=== PATIENT | male | born 1940 | race Caucasian/White ===

== ENCOUNTER 2017-02-14 16:26 | Inpatient (IN) ==
[2017-02-14] MEDS ORDERED: VANCOMYCIN IV PER PHARMACY MISC SCH (19:00)
--- NOTE | 2017-02-14 19:46 | Diag Imaging Result Doc PS360 ---
EXAM: FOOT COMPLETE RIGHT INDICATION: right foot pain, extremity gangrene TECHNIQUE: 3 views COMPARISON: None. FINDINGS: There is diffuse soft tissue edema surrounding the foot and ankle. There appears to be a soft tissue defect at the tip of the second toe. No significant soft tissue can be identified overlying the tip of the distal phalanx of the second toe, and there may be exposed bone. However, no discrete bony erosion is identified at this time. There are small calcaneal bone spurs. There is no discrete fracture or dislocation. Visualized joint spaces are essentially unremarkable except for minimal degenerative changes at the anterior aspect of the distal tibia there is extensive atherosclerotic calcification involving the foot and ankle. IMPRESSION: Diffuse soft tissue edema and a prominent soft tissue defect at the tip of the second toe as described. However, no definite underlying bony erosion is appreciated. Electronically signed by Darrion Durán 02/14/2017 7:44 PM
--- NOTE | 2017-02-14 19:49 | Diag Imaging Result Doc PS360 ---
EXAM: CHEST-PORTABLE INDICATION: preop TECHNIQUE: One view COMPARISON: 09/29/2016 FINDINGS: Inspiration is suboptimal. The lungs are grossly clear. There is no discrete pleural fluid collection or pneumothorax. Cardiac silhouette is borderline prominent, probably due to magnification from AP technique. There has been interval placement of an implantable heart rhythm monitor. Central vasculature is unremarkable. IMPRESSION: Borderline prominent heart, possibly due to magnification from AP technique. No definite acute pathology, otherwise. Electronically signed by Darrion Durán 02/14/2017 7:47 PM
[2017-02-14 20:04] LABS: MANUAL DIFF NEEDED? NO
[2017-02-14 20:13] LABS: INR 1.04; PROTIME 10.9 Seconds (9.2-11.7)
[2017-02-14 20:26] LABS: ALBUMIN 3.8 g/dL (3.5-5.0); BASO% 0.3 % (0.0-0.8); CALCIUM 9.6 mg/dL (8.8-10.2); EOS% 2.2 % (0.0-10.0); HEMATOCRIT 27.2 % (42.0-52.0); HEMOGLOBIN 8.8 g/dL (14.0-18.0); IMM GRAN# 0.09 X1000 (0.0-0.04); LYMPH# 1.34 X1000 (1.2-3.4); LYMPH% 14.9 % (20.5-51.1); MCH 29.8 PG (27-31); MCHC 32.4 g/dL (33-37); MCV 92.2 FL (81-99); MONO# 0.66 X1000 (0.11-0.59); MONO% 7.3 % (1.7-9.3); MPV 9.6 FL (7.4-10.4); NEUT% 74.3 % (42.2-75.2); PLT 306 X1000 (130-400); POTASSIUM 4.7 mmol/L (3.5-5.1); RBC 2.95 XMIL (4.7-6.1); TOTAL BILIRUBIN 0.17 mg/dL (0.20-1.00); TOTAL PROTEIN 7.4 g/dL (6.3-8.3)
[2017-02-14 21:13] LABS: SED RATE 110 mm/hr (0-15)
[2017-02-14] MEDS ORDERED: VANCOMYCIN 2,000 MG in NS 500 ML IV ONE (22:00)
[2017-02-14] MEDS: ZOSYN 2.25 GM/NS 2.25 GM/50 ML IVPB IV SCH (22:17)
[2017-02-14] MEDS: HUMALOG SUBQ SCH (22:20)
--- NOTE | 2017-02-14 22:28 | HISTORY AND PHYSICAL ---
CHIEF COMPLAINT: Mr. Dubon is admitted because of right foot ischemia with active infection. Suspect deep tissue infection with osteomyelitis suspected as well. Dr. Hay is planning on doing debridement and possible amputation tomorrow. HISTORY OF PRESENT ILLNESS: This is a 76-year-old with history of prostate and colon cancer, hypertension, diabetes mellitus type 2, acute onset of dysphagia and headaches which was his last admission with headache and dysphagia. This time came in from Dr. Hay's office with ischemia in his foot. He is followed by Dr. Сергей Wilson. PAST SURGICAL HISTORY: Partial colectomy, cholecystectomy, prostatectomy. SOCIAL HISTORY: Remote history of nicotine dependence. Does not smoke or drink. No illicit drugs. FAMILY HISTORY: Mother from breast cancer. Father from prostate cancer. REVIEW OF SYSTEMS: No weight gain or loss. No fever or chills. Just been feeling pretty bad in this strong smell from the right foot. More swelling. He has chronic lymphedema in that right leg. PHYSICAL EXAMINATION: VITAL SIGNS: Temperature 98.2 degrees, pulse 86, respirations 18, blood pressure 140/90. CVP less than 6 cm. LUNGS: Clear in all lung casiano. CARDIOVASCULAR: Regular rhythm and rate without murmur or S3. ABDOMEN: Soft. No hepatojugular reflux. No hepatosplenomegaly. EXTREMITIES: Right leg with 3+ pitting edema from really the foot all the way up to his knee. He has almost all of his toes with ulcerative lesions. He has a strong anaerobic smell with drainage from that distal foot. ASSESSMENT AND PLAN: 1. Foot ulcer right side. Suspect peripheral vascular disease, but he also has renal insufficiency. We will put him on empiric antibiotics. He is supposed to get debridement tomorrow. I suspect he has osteomyelitis and will need 6 weeks of antibiotic coverage. He probably will need a PICC line. For tonight we will load him with vancomycin and with and Zosyn to cover for gram negative, gram positive and anaerobes. 2. Chronic lymphedema in that right leg. I am not sure if we have done arterial studies on that right leg. I assume we have, but may need to order those. 3. Diabetes mellitus, type 2. Follow up sugars, put him on sliding scale. 4. History of prostate cancer status post prostatectomy, which is apparently metastatic. He is being treated by Dr. Reddy. 5. Colon cancer status post partial resection. 6. Hypertension. Follow blood pressure. CURRENT MEDICATIONS: Aspirin 81 mg a day. Casodex 50 mg a day. Catapres 0.1 mg t.i.d. p.r.n. Prinivil 10 mg a day. Lisinopril 40 mg a day. Metformin 500 mg b.i.d. Prilosec 1 capsule daily. cc: Jean Quick MD
[2017-02-15] MEDS: ZOSYN 2.25 GM/NS 2.25 GM/50 ML IVPB IV SCH ×2 (03:33→10:14)
[2017-02-15 03:37] LABS: URINE CULTURE NEEDED? NO; URINE MICRO REVIEW NEEDED? NO; URINE SOURCE CLEAN CATCH
[2017-02-15 06:08] LABS: BILIRUBIN URINE NEGATIVE (NEGATIVE); BLOOD URINE NEGATIVE (NEGATIVE); COLOR STRAW; GLUCOSE URINE NEGATIVE (NEGATIVE); LEUKOCYTES URINE NEGATIVE (NEGATIVE); NITRITE URINE NEGATIVE (NEGATIVE); PROTEIN URINE TRACE mg/dL (NEGATIVE); SP GRAVITY URINE 1.012; TURBIDITY URINE CLEAR (CLEAR); UR EPITHELIAL CELLS <10 /HPF (<10); URINE BACTERIA NEGATIVE /HPF; URINE RBC <10 /HPF (<10); URINE WBC <10 /HPF (<10); UROBILINOGEN URINE NORMAL (NORMAL)
[2017-02-15] MEDS: HUMALOG SUBQ SCH ×4 (06:10→20:32)
[2017-02-15 06:40] LABS: HEMATOCRIT 26.6 % (42.0-52.0); HEMOGLOBIN 8.5 g/dL (14.0-18.0); MCH 29.7 PG (27-31); MPV 9.8 FL (7.4-10.4); RBC 2.86 XMIL (4.7-6.1)
[2017-02-15 06:54] LABS: HEMOGLOBIN A1C 6.7 % (4.8-6.0)
[2017-02-15 07:07] LABS: POTASSIUM 4.4 mmol/L (3.5-5.1)
--- NOTE | 2017-02-15 07:51 | PROGRESS NOTE ---
DATE: 02/15/2017 CONCLUSION: Patient is admitted to the hospital with infection involving his right foot. Thus far, on plain x-ray, there is no evidence of osteomyelitis. RECOMMENDATIONS: I agree with treating the patient with vancomycin and Zosyn pending culture results. I am going to repeat the patient's creatinine tomorrow and if it rises above what it is today, then I will stop vancomycin and put the patient on daptomycin. I have ordered a bone scan of the right foot. DISCUSSION: The patient tells me that for the past two and half weeks, he has developed an infection on the toes of his right foot. The toes are swelling. They are erythematous and painful. LABORATORY STUDIES: The patient's x-ray of the right foot shows no osteomyelitis. A culture taken from the right foot on Gram stain shows gram positive cocci, gram negative rods, and gram negative cocci. Culture is pending. Also, the patient has had blood cultures drawn and their results are pending also. The patient's chest x-ray shows no acute disease. The patient's CBC shows a white count of 7660, hemoglobin 8.5, and platelet count 304,000. Creatinine is 1.3. The GFR is 54. Liver function studies are normal. Urinalysis shows no white cells or bacteria. PAST MEDICAL HISTORY/REVIEW OF SYSTEMS: Eyes and Ears: He denies difficulty hearing or seeing. Neck: No stiffness. Respiratory: No cough or shortness of breath. Cardiac: No chest pain or palpitations. GI: No nausea, vomiting, or diarrhea. Genitourinary: No dysuria or flank pain. Neurologic: No seizures. No motor or sensory loss. No seizures. Endocrine: Patient has diabetes but not thyroid disease. Hematologic: Patient is anemic but he does not have a bleeding tendency. The remainder of the patient's review of systems was completed and was negative. PREVIOUS HOSPITALIZATIONS AND OPERATIONS: He has had a partial removal of his colon for colon cancer. He has also had, at the same time, a cholecystectomy performed. He has an implanted service tech that is in his chest. He has had a colonoscopy. He has had surgery for removal of prostate cancer. MEDICAL DISEASES: Positive for colon and prostate cancer, diabetes mellitus, and hypertension. INFECTIOUS DISEASE HISTORY: Negative for pneumonia and UTI. FAMILY HISTORY: Positive for diabetes mellitus and cancer. SOCIAL HISTORY: The patient lives in [place]. He is . He has a dog as a pet. He does not smoke cigarettes, drink alcoholic beverages, or abuse drugs. ALLERGIES: He is allergic to sulfa. HOME MEDICATIONS: Include the following: Metformin, naproxen, glucosamine, amlodipine, and aspirin. PHYSICAL EXAMINATION: Vital Signs: Temperature is 98.1 degrees, pulse 74, respirations 14, blood pressure 161/72. Patient weighs 226 pounds. General: This is an obese, elderly male who is in no acute distress. Head, Eyes, Ears, Nose, and Throat: Patient has dentures both for the upper and lower part of the mouth. He can hear my spoken words. He can see near objects. Neck: No meningismus. Thorax: The patient has an implanted device on the left side of the chest. The site is not erythematous or swollen. Lungs: Clear to auscultation. Cardiovascular: Regular heart rate. Abdomen: Soft and nontender. Extremities: The patient's right foot is somewhat swollen. The toes are swollen and have some eschar on them as well as some black tissue. There was no odor to the foot and no drainage coming from the foot. COMORBIDITIES: Include he is elderly and he also is a diabetic. ASSESSMENT AND PLAN: Patient appears to have an infection in his feet. My plan would be to continue with vancomycin and Zosyn but if the creatinine should rise, then I will discontinue Zosyn and start the patient on daptomycin along with Zosyn. Thank you for the consult. cc: MD RAYMON Crane
--- NOTE | 2017-02-15 14:16 | Diag Imaging Result Doc PS360 ---
EXAM: 3 PHASE BONE SCAN INDICATION: R foot osteomyelitis TECHNIQUE: 29.9 mCi of technetium 99 MDP was administered intravenously and three phase images of the feet were obtained in the usual fashion post administration. COMPARISON: No prior nuclear medicine bone scan is available for comparison. FINDINGS: There is increased uptake associated with the right forefoot on blood flow and blood pool images indicating hyperemia, probably due to cellulitis. On delayed images, there is increased focal uptake associated with the tip of the right great toe. There is milder uptake associated with what is probably the second and third order third and fourth toes on the right. Osteomyelitis cannot be excluded. There is no abnormal uptake associated with the left foot. IMPRESSION: 1.Increased uptake associated with the right forefoot on blood flow and blood pool images indicating nonspecific hyperemia, probably due to cellulitis. 2.Focal increased delayed uptake at the tip of the great toe and also associated with a couple other toes on the right. Osteomyelitis cannot be excluded. Electronically signed by Darrion Durán 02/15/2017 2:13 PM
--- NOTE | 2017-02-15 14:28 | PROGRESS NOTE ---
DATE: 02/15/2017 SUBJECTIVE: The patient got back from the bone scan and is asking for food. No fever. No chills. No nausea, vomiting, or diarrhea. The patient has a problem with his toes for some time. OBJECTIVE: His blood pressure 165/67, pulse of 79. respirations 20, temperature 98.1 degrees sat of 98% room air.General Appearance: Well-developed, well-nourished white male, in no acute distress. HEENT: Anicteric. Clear conjunctivae. Neck: Supple. No JVD. No bruit. Cardiovascular: S1, S2. Normal rate and rhythm. No murmur, rubs, or gallops. Pulmonary: Clear to auscultation bilaterally. GI: Soft, nontender, nondistended. Normoactive bowel sounds. Musculoskeletal: He has his 1st, 2nd and 3rd toes on the left foot are necrotic and has a foul smell odor. No significant cellulitis around it. LABORATORY: White count 7.66, hemoglobin 8.5, hematocrit of 26.6, platelets of 304,000. Sodium 141, potassium 4.4, chloride 104, bicarb 25, BUN 29,. Creatinine 1.4, glucose of 103. ASSESSMENT AND PLAN: This is a 76-year-old white male, admitted to the hospital for gangrene and necrotic toes on the left. 1. Necrotic toes concerning for osteo. The patient on broad-spectrum antibiotics. General Surgery was consulted. Dr. Hay was following. We will keep the patient on broad-spectrum antibiotics for now. We will follow up culture. ID is also following. 2. Diabetes type 2. We will hold his metformin and we will continue Humalog. 3. Hypertension. We will resume his home Norvasc. 4. Deep vein thrombosis prophylaxis. Will put the patient on Lovenox. CODE STATUS: The patient is a full code.
[2017-02-15] MEDS ORDERED: DIPRIVAN 1% ONE (15:18)
[2017-02-15] MEDS ORDERED: XYLOCAINE-MPF 2% ONE (15:56)
[2017-02-15] MEDS ORDERED: LR 1,000 ML ONE (15:56)
[2017-02-15] MEDS: ZOSYN 3.375 GM/NS 3.375 GM/50 ML IVPB IV SCH ×3 (16:17→22:55)
--- NOTE | 2017-02-15 19:57 | OPERATIVE NOTE ---
PROCEDURE DATE: 02/15/2017 PREOPERATIVE DIAGNOSES: 1. Diabetic toe infection of the 2nd, 3rd toe with exposed bone of the right foot. 2. Diabetic toe ulcer of the 1st toe on the right foot. POSTOPERATIVE DIAGNOSES: 1. Diabetic toe infection of the 2nd, 3rd toe with exposed bone of the right foot. 2. Diabetic toe ulcer of the 1st toe on the right foot. PROCEDURE PERFORMED: 1. Amputation of the right #2 and #3 toes. 2. Excisional debridement of the skin and subcutaneous tissue of a 2 x 1 cm ulcer of the right 1st toe. ESTIMATED BLOOD LOSS: 10 mL. SPECIMENS: 1. Right 2nd and 3rd toes. 2. Distal metatarsal for bone culture. ANESTHESIA: General. INDICATION: This is a 76-year-old male with history of lymphedema and diabetes marginally controlled who presents with longstanding toe wounds to the right second and third toes, now with exposed bone of the 2nd digit. He also has an ulcer on his medial aspect of his right 1st toe. Amputation to facilitate wound healing and control of a source of infection is indicated. OPERATIVE FINDINGS: There is some purulence of the toes themselves, but the distal metatarsal appeared to be healthy with good bleeding tissue noted. The ulcers on the left 1st toe were very superficial and were quickly debrided back at a very shallow level to healthy bleeding tissue. OPERATIVE NOTE: Risks, benefits, alternatives discussed with the patient and family and he consented to procedure. He was seen preoperatively and surgery to be performed was confirmed. Surgical site was marked. He has taken to the operating room, placed in supine position. General anesthesia was induced. The foot was prepped with Betadine solution and draped in usual fashion. After time-out was performed, we confirmed the surgical site. We planned elliptical incision around the 2nd and 3rd toes and carried this down to the level of the distal metatarsal joint. We amputated toes in their entirety through the joint space. We then using rongeur forceps debrided back the second and third metatarsal head and sent these bones for culture. There was some purulence noted in the toes, but the proximal tissues had no pus and were bleeding well consistent with adequate perfusion. We then turned our attention to the medial aspect of the 1st toe. There were some superficial ulcers here. Using scissors and forceps, we excised this back. This was to the subcutaneous tissue level only. Obtained hemostasis in both wounds and irrigated them and packed the wound with Vashe, Kerlix and loose Kerlix and Jose Luis wrap. Tolerated procedure well. There was no identified complication. Counts correct x2. I spoke with the family. He was transferred back to his room. cc: Abelino Hay MD
[2017-02-15] MEDS: PERIDEX MT SCH (20:32)
[2017-02-15] MEDS: VANCOMYCIN 1,500 MG in NS 250 ML IV SCH (22:27)
[2017-02-16] MEDS: ZOSYN 3.375 GM/NS 3.375 GM/50 ML IVPB IV SCH ×4 (03:09→21:01)
[2017-02-16 06:00] LABS: HEMATOCRIT 26.7 % (42.0-52.0); HEMOGLOBIN 8.6 g/dL (14.0-18.0); MCH 30.4 PG (27-31); MCHC 32.2 g/dL (33-37); MCV 94.3 FL (81-99); MPV 9.6 FL (7.4-10.4); RBC 2.83 XMIL (4.7-6.1)
[2017-02-16 06:12] LABS: CALCIUM 8.9 mg/dL (8.8-10.2); POTASSIUM 4.3 mmol/L (3.5-5.1)
[2017-02-16] MEDS: HUMALOG SUBQ SCH ×4 (06:21→21:53)
--- NOTE | 2017-02-16 08:41 | PROGRESS NOTE ---
DATE: 02/16/2017 PRESENT ILLNESS: The patient is status post debridement of the great toe and amputation of toes 2 and 3. The bone scan showed the presence of osteomyelitis in toes 2 and 3 and also in the great toe. It showed also cellulitis of the right forefoot. MEDICATIONS: The patient is receiving a combination of vancomycin and Zosyn. PHYSICAL EXAMINATION: Vital Signs: Temperature is 98.4 degrees, pulse 78, respirations 20, blood pressure 128/98. General: This is a healthy-appearing elderly male. He is in no acute distress. Lungs: Clear to auscultation. Cardiovascular: Regular heart rate. Abdomen: Soft and nontender. Extremities: The right foot has a large dressing around it. The dressing is intact. LABORATORY AND X-RAY: Bone scan shows possible osteomyelitis in the great toe and toes 2 and 3. It also showed cellulitis in the right forefoot. The patient's CBC shows a white count of 7920, hemoglobin 8.6, and platelet count 279,000. Creatinine is 1.2. GFR is 59. Blood cultures thus far are sterile. The right foot cultures from 02/14/2017 are negative, and the ones from 02/15/2017 are pending. ASSESSMENT AND PLAN: The patient is status post surgery with amputation of toes 2 and 3 and debridement of the great toe. I read Dr. Hay's operative note, and I want to talk to him about does he think that there still could be some focus of osteomyelitis remaining, which in that situation I would treat the patient with IV antibiotics for 6 weeks versus a much shorter period of treatment if the bone has all been removed and there is only a soft tissue infection. COMORBIDITIES: Include diabetes mellitus and the patient is elderly. It should be noted too that the patient has had both colon and prostate cancer. cc: Sahil Sawant MD
--- NOTE | 2017-02-16 08:53 | CONSULTATION ---
DATE OF CONSULTATION: 02/15/2017 CHIEF COMPLAINT: Metastatic prostate cancer. HISTORY OF PRESENT ILLNESS: Mr. Coco Dubon is a 76-year-old male well known to Dr. Reddy with a history of metastatic prostate cancer with bone involvement. He is currently being treated with Eligard and Casodex, as well as Zometa. His last Eligard was on 02/07/2017. Additionally, he has a history of colon cancer status post resection. The patient is admitted with right foot ulcer and ischemia. The patient also has an active infection at this time. Osteomyelitis is being ruled out as well. The patient is being followed by Dr. Sawant and is currently on vancomycin and Zosyn. Additionally, Dr. Hay is following the patient for debridement with possible amputation. The patient does have a history of chronic right leg lymphedema and was wearing CHERI hose daily. He reports that he believes he was wearing hose that were too tight and "cut off the circulation". The patient is sitting up in bed currently awake and alert in no apparent distress. PAST MEDICAL HISTORY: 1. Metastatic prostate cancer with bone involvement. 2. History of colon cancer. 3. Hypertension. 4. Diabetes mellitus type 2. 5. Anemia of chronic disease. 6. Chronic kidney disease. 7. Thrombocytopenia. PAST SURGICAL HISTORY: 1. Partial colectomy. 2. Cholecystectomy. 3. Prostatectomy. SOCIAL HISTORY: The patient does have a history of smoking. He currently does not use tobacco, alcohol or illicit drugs. FAMILY HISTORY: Significant for breast cancer in the patient's mother and prostate cancer in the patient's father. MEDICATIONS ON ADMISSION: 1. Metformin. 2. Aspirin 81 mg. 3. Amlodipine. 4. Eligard. 5. Casodex. 6. Zometa. ALLERGIES: Sulfa. REVIEW OF SYSTEMS: A 14-point review of systems was obtained and is negative, except for as mentioned in HPI. PHYSICAL EXAMINATION: General: Mr. Dubon is a very pleasant, 76-year-old male sitting up in bed in no immediate distress. HEENT: Normocephalic, atraumatic. Mucous membranes are pink and moist. Sclerae is anicteric. Extraocular movements intact. Neck: Supple. Lungs: Clear to auscultation bilaterally. Chest expansion is equal bilaterally. CV: S1, S2 is heard without murmur, rub or gallop. Abdomen: Soft, nondistended, nontender. Bowel sounds positive in all quadrants. No rebound or guarding noted. Extremities: Without clubbing. The patient does have right lower extremity 3+ pitting edema to the knee. Additionally, he has ulcerative lesions on his toes with foul smelling drainage. ASSESSMENT AND PLAN: 1. Metastatic prostate cancer with bone involvement, currently being treated with Eligard, Casodex and Zometa. His last Eligard was on 02/07/2017. Additionally, he has a history of colon cancer and is status post resection. 2. Right foot ulcer questionably related to peripheral vascular disease. Dr. Sawant is currently following and has placed the patient on vancomycin and Zosyn. Dr. Hay is following as well for potential debridement and possible amputation. 3. Chronic right leg lymphedema. The patient will possibly be scheduled for arterial studies. 4. Diabetes mellitus type 2. Currently on sliding scale insulin. Would monitor glucose daily. 5. Hypertension. Would monitor blood pressure and continue antihypertensives as ordered. We will follow along with you and make further recommendations pending outcomes. The above reflects the history, exam, assessment and plan of Dr. Reddy. Dictated by MOI Doll for Dhaval Reddy MD cc: MOI Doll MD
[2017-02-16] MEDS ORDERED: NORVASC PO SCH (09:00)
[2017-02-16] MEDS: PERIDEX MT SCH ×2 (09:38→21:01)
--- NOTE | 2017-02-16 13:11 | PROGRESS NOTE ---
DATE: 02/16/2017 SUBJECTIVE: He feels well. No events. Dressing was changed overnight after it was soiled after spilling his urinal, but no other events. OBJECTIVE: Vital Signs: Temperature is 98.1 degrees, pulse 80, blood pressure 120/55. General: He is alert, in no acute distress. Cardiovascular: Normal rate, regular rhythm. Extremities: His right foot dressing is clean, dry and intact. LABS: I reviewed his labs. White count 7, hematocrit 26, glucose 195. ASSESSMENT/PLAN: A 76-year-old male with diabetic toe infection of the second and third toe. Bone scan shows some changes concerning for possible osteo, although clinically at the time of surgery this seemed to not be the case. His wound had been adequately debrided. He is on antibiotics. I think Dr. Sawant plans to treat him preemptively for osteomyelitis and I agree with this in this chronically-ill gentleman with quite severe wound of his foot. We will continue following. His MARY's show adequate perfusion to the level of the foot bilaterally, and this was confirmed at time of surgery and need for revascularization. Based off this, we will continue to monitor his wound. I will take his dressing down tomorrow, and I will make definitive plans for changes going forward, but he can follow me in the next 1 or 2 weeks at [facility] pending on what we find tomorrow. I appreciate Dr. Sawant and the hospitalist's help with this patient. cc: Abelino Hay MD
--- NOTE | 2017-02-16 16:10 | PROGRESS NOTE ---
DATE: 02/16/2017 SUBJECTIVE: The patient is feeling better today. He denies having any fever or chills. Denies having any nausea, vomiting, or diarrhea. OBJECTIVE: Vital signs: Blood pressure 126/57, pulse of 77, respirations 16, temperature 97.6 degrees, sat of 97% room air. General appearance: Well-developed, well-nourished white male, in no acute distress. HEENT: Anicteric. Clear conjunctivae. Neck: Supple. No JVD. No bruit. Cardiovascular: S1, S2 normal. Normal rate and rhythm. No murmur, rubs, or gallops. Pulmonary: Clear to auscultation bilaterally. GI: Soft, nontender, nondistended. Normoactive bowel sounds. Musculoskeletal: No clubbing, cyanosis. Has right foot with dressing in place around the toe. LABORATORY: White count 7.92, hemoglobin 8.6, hematocrit of 26.7, platelets of 279,000. Chemistry: Sodium 140, potassium 4.3, chloride 104, bicarb 25 BUN 20, creatinine 1.2, glucose of 92. ASSESSMENT AND PLAN: This is a 76-year-old white male admitted for diabetic foot ulcer. 1. Diabetic foot ulcer. Status post 2nd and 3rd left toe amputations plus debridement of the great toes on the same foot. We will continue IV antibiotics. Cultures still pending. ID is following. General Surgery is following. 2. Diabetes. We will continue sliding scale insulin for now. 3. Hypertension. We will continue Norvasc. 4. Code status. The patient is a full code. His is his surrogate decision maker. 5. Deep vein thrombosis prophylaxis. Put the patient on Lovenox.
[2017-02-16] MEDS: VANCOMYCIN 1,500 MG in NS 250 ML IV SCH (22:14)
[2017-02-17] MEDS: ZOSYN 3.375 GM/NS 3.375 GM/50 ML IVPB IV SCH (04:12)
[2017-02-17 05:55] LABS: HEMATOCRIT 26.6 % (42.0-52.0); HEMOGLOBIN 8.6 g/dL (14.0-18.0); MCH 30.3 PG (27-31); MCHC 32.3 g/dL (33-37); MCV 93.7 FL (81-99); MPV 9.6 FL (7.4-10.4); RBC 2.84 XMIL (4.7-6.1)
[2017-02-17] MEDS: HUMALOG SUBQ SCH ×4 (06:22→22:37)
[2017-02-17 06:49] LABS: CALCIUM 8.9 mg/dL (8.8-10.2); MAGNESIUM 2.1 mg/dL (1.5-2.7); POTASSIUM 4.4 mmol/L (3.5-5.1)
--- NOTE | 2017-02-17 07:13 | VASCULAR LAB ---
PROCEDURE NAME: Arterial Bilateral Legs - 02/16/2017 REQUESTING PHYSICIAN: Dr. Johnny Hay. SCALLOP DREDGER: Mark. INDICATIONS: Amputation of right 2nd and 3rd toes with right great toe ulcer. FINDINGS: Segmental pressures are as follows: Right brachial 144, left 155. Right proximal thigh 199, left 250. Right distal thigh 250, left 250. Right popliteal 187, left 211. Right dorsalis pedis 107, left 212. Right posterior tibial 155, left 192. Right toe: Unable to put blood pressure cuff on, left 101, right MARY 1.00, left 1.37. WAVEFORM ANALYSIS: Waveforms appear to be intact to the level of the toe bilaterally. The MARY on this person is elevated which may represent calcific plaques but, on this study, there appears to be perfusion to the level of the toes bilaterally. INTERPRETATION: There appears to be perfusion to the level of the toes bilaterally suggesting potential for healing. The patient's ABIs are likely falsely elevated secondary to calcification. cc: MD Abelino Lugo MD
--- NOTE | 2017-02-17 07:55 | PROGRESS NOTE ---
DATE: 02/17/2017 PRESENT ILLNESS: The patient is status post debridement of the great toe and amputation of toes 2 and 3 on the right foot. The bone scan showed the possibility of osteomyelitis in the toes and, also, it showed cellulitis in the right forefoot. MEDICATIONS: Patient is receiving vancomycin and Zosyn. PHYSICAL EXAMINATION: Vital Signs: Temperature is 98.1 degrees, pulse 79, respirations 18, blood pressure 176/71. Generally, this is a fairly healthy-appearing, elderly male. He is in no acute distress. Lungs clear to auscultation. Cardiovascular: Heart rate is regular. Abdomen is soft and nontender. Extremities: The right foot has a large dressing around it. The dressing is intact. LABORATORY DATA AND X-RAY: The culture from the foot grew diphtheroids. This represents, I think, a skin contaminant and does not need to be covered with antibiotics. CBC shows a white count of 6980, hemoglobin 8.6, and platelet count 278,000. Creatinine is 1.3. GFR is 54. ASSESSMENT AND PLAN: The patient is status post surgery on his feet including amputation of toes 2 and 3 and debridement of the great toe on the right side. As mentioned above, the culture grew from the foot grew diphtheroids. I consider this a skin contaminant and not causing the patient's infection and, therefore, it does not need to be treated with antibiotic therapy. I have ordered to have a PICC placed in the patient and then I put a consult in for [facility] to supply the patient's home antibiotic. He is on vancomycin. I have substituted cefepime for Zosyn. I plan to treat the patient for a total of 6 weeks with both antibiotics. I will see the patient in my office at 3 weeks and then again at 6 weeks and, if everything looks so good at the 6-week visit, we will stop his antibiotics and remove his PICC. The patient's comorbidities include diabetes and the fact that the patient is elderly. cc: Sahil Sawant MD
[2017-02-17 08:13] LABS: INR 1.05; PROTIME 11.1 Seconds (9.2-11.7)
[2017-02-17] MEDS ORDERED: NS 250 ML ONE (08:36)
[2017-02-17] MEDS ORDERED: MAXIPIME 2 GM/NS 2 GM/100 ML IVPB IV SCH (09:00)
[2017-02-17] MEDS: NORVASC PO SCH (09:19)
[2017-02-17] MEDS: PERIDEX MT SCH ×2 (09:19→22:38)
[2017-02-17] MEDS: LOVENOX SUBQ SCH (09:19)
[2017-02-17] MEDS: PRINIVIL PO SCH (09:19)
--- NOTE | 2017-02-17 13:12 | PROGRESS NOTE ---
DATE: 02/17/2017 SUBJECTIVE: Feels well. No pain. PICC line got placed this morning. No fevers. No tachycardia. Blood pressure has been okay at 164/70. OBJECTIVE: General: He is alert and in no acute distress. Extremities: Lower extremities are well perfused. Chronic edema of the right lower extremity. His amputation site is granulating well, with healthy, beefy tissue in the bed. No purulence and no necrosis. The ulcer on the medial aspect of his 1st toe is clean, as well. Laboratory: Laboratories reviewed. White count 6. Creatinine stable at 1.3. Glucose 177. ASSESSMENT AND PLAN: A 76-year-old male with a diabetic toe wound, status post amputation of the 2nd and 3rd toes. Wounds look well. PICC line is in place for home antibiotics. Home health is being arranged. From a wound care standpoint, he will need twice-daily wet-to-dry dressings with either saline or Vashe, as available, and I can see him in 2 weeks at the [facility]. I have given the patient these instructions and discussed this with his nurse. It would be fine for him to go home from a surgical standpoint if all of his other needs are arranged. cc: Abelino Hay MD
--- NOTE | 2017-02-17 13:49 | PROGRESS NOTE ---
DATE: 02/17/2017 SUBJECTIVE: The patient is feeling well. He denies having any pain. The patient stated he has very minimal feeling on his lower extremities therefore pain was not an issue for him down there. No fever, no chills overnight. The patient was seen and examined. EXAM: Vital Signs: Blood pressure 164/70, pulse of 73, respiration 18, temperature 97.6 degrees, sat of 97% on room air. General Appearance: Elderly white male, pleasant in no acute distress. HEENT: Anicteric. Clear conjunctivae. Neck: Supple. No JVD. No bruits. Cardiovascular: S1, S2. Normal rate and rhythm. No murmur, rubs, or gallops. Pulmonary: Clear to auscultation bilaterally. GI: Soft, nontender, nondistended. Normoactive bowel sounds. Musculoskeletal: No clubbing, cyanosis, or edema. LABORATORY: Sodium 143, potassium 4.4, chloride 104, bicarb 25, BUN 26, creatinine 1.7, glucose 151. White count 6.98, hemoglobin 8.6, hematocrit of 26.6, platelets 278,000. Microbiology: The wound grew out gram positive cocci. I and S are still pending. ASSESSMENT AND PLAN: This is a 76-year-old white male with uncontrolled diabetes presented with left first, 2nd and 3rd toe diabetic ulcer status post amputation of his 2nd and 3rd and debride of first toe. 1. Toe amputation and osteomyelitis of the left 1st great toes. Culture grew out gram positive cocci. The patient on vancomycin. He seemed to be tolerating the medication well. ID is following. PICC line is in place. When we know what the gram positive cocci is we can tailor the medications so that he can go home with appropriate antibiotics. 2. Diabetes type 2. We will continue sliding scale insulin. 3. Hypertension. Continue Norvasc and lisinopril. CODE STATUS: The patient is a full code.
[2017-02-17] MEDS: VANCOMYCIN 1,500 MG in NS 250 ML IV SCH (22:37)
[2017-02-18] MEDS: HUMALOG SUBQ SCH ×2 (06:28→12:42)
[2017-02-18] MEDS: LOVENOX SUBQ SCH (08:34)
[2017-02-18] MEDS: PRINIVIL PO SCH (08:34)
[2017-02-18] MEDS: PERIDEX MT SCH (08:34)
[2017-02-18] MEDS: NORVASC PO SCH (08:34)
--- NOTE | 2017-02-18 09:58 | DISCHARGE SUMMARY ---
ADMISSION DATE: 02/14/2017 DISCHARGE DATE: 02/18/2017 CONSULTATIONS: 1. Dhaval Reddy MD, Hematology Oncology. 2. Johnny Hay MD with General Surgery. 3. Sahil Sawant MD with Infectious Disease. PERTINENT PROCEDURES: 1. Foot x-ray showed diffuse soft tissue edema prominent soft tissue defect at the tip of the 2nd toe as described; however, no definite underlying bony erosion was appreciated. 2. Nuclear bone scan showed increased uptake associated with right forefoot on blood flow and blood pool images indicating nonspecific. Hyperemia probably due to cellulitis. Focal increased delayed uptake at the tip of the great toe and also associated with a couple of other toes on the right. Osteomyelitis could not be excluded. 3. Amputation of the right 2nd and 3rd toes. Excisional debridement of the skin and subcutaneous tissues of a 2.1 cm ulcer of the right 1st toe performed by Dr. Johnny Hay. 4. Arterial Dopplers on the bilateral lower extremities. There appears to be profusion to the level of the toes bilaterally suggesting potential for healing. The patient' s ABIs are likely falsely elevated secondary to calcification. DISCHARGE DIAGNOSES: 1. Right diabetic toe wound status post amputation of the 2nd and 3rd toes with debridement performed by Dr. Johnny Hay. The wound looks appropriate. The patient had a peripherally inserted central catheter line placed for IV antibiotics with cefepime and Zosyn. This has been arranged with Dr. Sawant with [facility]. The patient will receive these antibiotics for 6 weeks and follow up with Dr. Sawant in 3 weeks and then again in 6 weeks to see if they can stop the antibiotics. From a wound care standpoint, he will need twice daily wet-to-dry dressing changes with either saline or Vashe and Dr. Hay will see him in 2 weeks at [facility]. The patient has been given education as well as instructions. 2. Diabetes mellitus type 2. Continue with home medications. 3. Hypertension. Continue with Norvasc and lisinopril. 4. Metastatic prostate cancer with bone involvement currently being treated with Eligard, Casodex and Zometa. Followed by Dr. Reddy. 5. History of colon cancer. Status post resection. 6. Chronic right leg lymphedema. The patient underwent bilateral arterial studies that did not show any flow-limiting lesions. HOSPITAL COURSE: Briefly, Mr. Dubon is a 76-year-old male who carries a past medical history of metastatic prostate cancer with bone involvement, recently treated with a Eligard and Casodex, as well as Zometa, as well as a history of colon cancer status post resection. The patient was admitted for a right foot ulcer and ischemia. He underwent 2nd and 3rd toe amputations by Dr. Johnny Hay with debridement on the 1st toe. The patient was also followed by Dr. Sahil Sawant. Currently on antibiotics with vancomycin as well as Zosyn. He will be switched to Zosyn and cefepime at the time of his discharge for [address] Hay has released the patient. He has received his PICC line for home antibiotics. He will be followed by [facility]. From a wound care standpoint, he will need twice daily wet-to-dry dressings with either saline or Vashe. Dr. Hay will see the patient in 2 weeks at the [facility]. The patient has been given education on these instructions, how to care for his wound, as well as family. Again, the patient will be going home with IV antibiotics. He will follow up with Dr. Sawant in 3 weeks and then again in 6 weeks. VITAL SIGNS AT TIME OF DISCHARGE: Temperature is 98.4 degrees, heart rate 86, respirations 16, blood pressure 131/57, O2 is 100% on room air. DISCHARGE DIET: Diabetic. DISCHARGE MEDICATIONS: As per Dr. Ramsey. His IV antibiotics will include cefepime and Zosyn for a total of [address] Sahil Sawant. FOLLOWUP: The patient is being discharged home with home health and IV with [facility]. He will follow up with Dr. Johnny Hay in 2 weeks [address] as Dr. Sahil Sawant in 3 weeks and then again in 6 weeks. He will do wound care b.i.d. He has been educated on this. The patient can return to the ED for any worsening of symptoms. TIME SPENT: Discharge time is 30 minutes. Dictated by MOI Rios for Dheeraj Ramsey MD cc: Caio Kwan MD Addendum: I personally evaluated and examined the patient in conjunction to the CATERING SERVER and agreed with her disposition [facility]
--- NOTE | 2017-02-18 10:32 | PROGRESS NOTE ---
DATE: 02/18/2017 SUBJECTIVE: Feels well. No pain. He has got his PICC line. No issues with his dressing overnight. OBJECTIVE: No fevers. No tachycardia. Blood sugars have been reasonably controlled. His dressing is clean, dry, and intact. He is sitting in the bed. ASSESSMENT AND PLAN: This is a gentleman status post amputation of his right second and third toes for necrotic wounds to his foot. He is doing well. Dr. Sawant has plans for IV antibiotics at home. I can see him back in 2 weeks at [facility]. In the meantime, he will continue wet-to-dry dressings b.i.d. to his foot, and we will make a decision at the time at [place] whether he needs a wound VAC or not. cc: Abelino Hay MD
[2017-02-18 11:27] VITALS: BP 109/56
--- NOTE | 2017-02-18 11:29 | PROGRESS NOTE ---
DATE: 02/18/2017 SUBJECTIVE: The patient is feeling well. He is ready to go home. No fever. No chills. No nausea, vomiting, or diarrhea. OBJECTIVE: Vital Signs: Blood pressure 131/57, pulse of 86, respirations 16, temperature 98.4 degrees, and saturation of 100% on room air. General Appearance: A thin white male in no acute distress. HEENT: Anicteric. Clear conjunctivae. Neck: Supple. No JVD. No bruit. Cardiovascular: S1 and S2. Normal rate and rhythm. No murmur, rubs, or gallops. Pulmonary: Clear to auscultation bilaterally. Gastrointestinal: Soft, nontender, nondistended. Normoactive bowel sounds. Musculoskeletal: No clubbing, cyanosis, or edema. LABORATORY: None was ordered for today. ASSESSMENT AND PLAN: This is a 76-year-old white male, admitted to the hospital for diabetic toe ulcer status post left 2nd and 3rd toe removed and left great toe debridement. Culture grew out Staphylococcus epidermides. Discussed with Dr. Sawant, who still wants the patient to be on vancomycin. I discussed with home health. They can administer his vancomycin at home once a day. We will discharge the patient home today.
== END 2017-02-18 13:08 | disposition home health service (06) ==
LOC: SUATTDRO 16:26 → DIRADM 16:26 → 4N 16:46
PROVIDERS: ATTEND Internal Medicine

== ENCOUNTER 2017-03-29 07:08 | Inpatient (IN) ==
--- NOTE | 2017-03-29 07:19 | PROVIDER DOCUMENTATION ---
HPI-Musculoskeletal Pain/Inj - GENERAL Chief Complaint: Rib Pain Stated Complaint: fall Time Seen by Provider: 03/29/17 07:09 Source: patient - HX OF PRESENT ILLNESS-MUSKULOSKELTAL Nature of Presenting Problem: Pt uses a walker and stubled last night bruising his left lower ribs. he went to bed last night but had too much pain to get out of bed this morning so had to call an ambulance. Only his left ribs hurt - FALL INJURY Location of Pain/Injury: reports: chest Pain Radiation: reports: no radiation Reason for Fall: reports: lost balance Symptoms prior to fall:: reports: none Loss of Consciousness: no loss of consciousness Injury Associated Symptoms: reports: chest pain Review of Systems - Adult - REVIEW OF SYSTEMS - ADULT Constitutional: denies: chills, fever Eyes: denies: discharge, blurred vision Ears, Nose, Mouth & Throat: denies: ear pain, nose pain Cardiovascular: denies: chest pain, irregular heart rate Respiratory: denies: chronic cough, pleurisy Gastrointestinal: denies: constipation, diarrhea, nausea, poor appetite, vomiting Genitourinary: denies: discharge, hematuria Musculoskeletal: reports: bone pain Integumentary: reports: no symptoms reported Neurological: reports: no symptoms reported (always has trouble walking so uses a walker) Psychiatric: reports: no symptoms reported Endocrine: denies: goiter, cold intolerance, heat intolerance Hematologic/Lymphatic: denies: low blood count, lymphedema Allergic/Immunologic: reports: no symptoms reported Past History - Adult - PAST MEDICAL HISTORY-ADULT Review of Records: reports: Nursing Assessment Review, Medications Reviewed Major Childhood Illnesses: reports: denies history Cardiovascular: reports: denies history Respiratory: reports: denies history Gastrointestinal: reports: denies history Obstetrical/Gynecological: reports: denies history Genitourinary: reports: denies history Musculoskeletal: reports: denies history Neurological: reports: denies history Endocrine/Immune: reports: denies history Other Conditions: reports: denies history - IMMUNIZATION STATUS Childhood Immunizations: See Nurse Assessment Flu Vaccine: See Nurse Assessment - FAMILY HISTORY Family History: reviewed, not pertinent Physical Exam-Injury Related - Physical Exam-Injury Related General Appearance: appears well, alert Eyes: PERRL/EOMI, pink conjunctivae Head, Ears, Nose, Mouth & Throat: normocephalic/atraumatic, moist mucous membranes, normal ENT inspection Neck: non-tender, full range of motion, supple, normal inspection, pain with axial compression Respiratory: chest non-tender, lungs clear, normal breath sounds, no pleuratic chest pain, no respiratory distress Cardiovascular: normal peripheral pulses, regular rate, rhythm, no edema, no gallop, no JVD, no murmur Abdominal Exam: normal bowel sounds, non tender, soft, no organomegaly Back Exam: normal inspection, no CVA tenderness, no vertebral tenderness Extremity: non-tender, normal inspection Integumentary: normal color, warm/dry 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, grossly normal Psych/Mental Status: normal mood/affect, normal thought content, normal thought process, oriented x 3 Progress - PLAN OF CARE/RESULTS Progress/Plan/Lab Results: Vital Signs - 8 hr 03/29/17 07:15 Temperature 98.9 F Pulse Rate 85 Respiratory Rate 14 Blood Pressure 163/96 O2 Sat by Pulse Oximetry 96 Orders Category Date Time Status Admit - [facility] Routine AdmDCTranf 03/29/17 10:46 Ordered Activity - Up with Assistance ORDERED Care 03/29/17 10:46 Active Intake and Output-Strict ORDERED Care 03/29/17 10:46 Active Vital Signs Order Q 8-HR ASSESS Care 03/29/17 10:46 Active Wound Care DIRECTED Care 03/29/17 09:17 Active Z-Document. for Tele Applied ORDERED Care 03/29/17 10:46 Completed Physician/Provider Consults Stat Cons 03/29/17 10:00 Ordered Physician/Provider Consults Stat Cons 03/29/17 10:01 Ordered Social Service Consult Routine Cons 03/29/17 10:46 Active Diabetic Diet Diet 03/29/17 09:42 Active cxr [CHEST-2 VIEWS] [RAD] Stat Exams 03/29/17 07:09 Completed CBC WITH NO DIFF [HEME] Stat Lab 03/29/17 10:20 Completed COMPREHENSIVE METABOLIC PANEL [CHEM] Stat Lab 03/29/17 10:20 Completed MAGNESIUM [CHEM] Stat Lab 03/29/17 10:20 Completed PROTIME WITH INR [COAG] Stat Lab 03/29/17 10:20 Completed Collagenase Clostridium Oint [Santyl Oint] Med 03/29/17 09:58 Discontinued See Dose Instructions TOP NOW ONE Ketorolac [Toradol] Med 03/29/17 08:09 Discontinued 60 mg IM NOW ONE Methocarbamol [Robaxin] Med 03/29/17 08:10 Discontinued 1,500 mg PO NOW ONE Telemetry [OM.EQ] Routine Oth 03/29/17 10:46 Active Transfer/Admit Order [TRANSFER] Routine Transfer 03/29/17 10:03 Completed Result Diagrams: 03/29/17 10:20 03/29/17 10:20 - REASSESSMENT Reassessment #1 Time Reassessed: 11:00 Status: unchanged (long discussion about placement because the family can't handle him at home. Admit observation to go to another hospital and transtion to rehab as cannot go home) Departure - Departure Date of Disposition Decision: 03/29/17 Time of Disposition Decision: 12:00 DIAGNOSIS: Myalgia, traumatic, Cellulitis and abscess of foot excluding toe Disposition: ADMITTED INPATIENT 09 Certified Medical Emergency: Emergent Condition: Stable - Critical Care Note This patient required my direct & personal management of CC.: No
--- NOTE | 2017-03-29 07:46 | Diag Imaging Result Doc PS360 ---
CHEST-2 VIEWS - 03/29/2017 INDICATION: right chest pain/ fall last night TECHNIQUE: COMPARISON: 02/14/2017 FINDINGS: There is a new left PICC line in good position with the tip at the upper SVC. The lungs are clear. Heart size is normal. No pneumothorax or pleural effusion. Stable cardiac device at the left anterior chest wall. IMPRESSION: Negative exam. Electronically signed by Zoran Avalos 03/29/2017 7:44 AM
--- NOTE | 2017-03-29 07:48 | Diag Imaging Result Doc PS360 ---
RIBS ONLY LEFT - 03/29/2017 INDICATION: left lower rib pain after a fall last night TECHNIQUE: Four views COMPARISON: None FINDINGS: There is a left-sided PICC line and left anterior chest wall cardiac monitoring device. The left-sided ribs are intact. Lungs are grossly clear. IMPRESSION: Negative exam. Electronically signed by Zoran Avalos 03/29/2017 7:45 AM
[2017-03-29] MEDS ORDERED: TORADOL IM ONE (08:09)
[2017-03-29] MEDS ORDERED: ROBAXIN PO ONE (08:10)
[2017-03-29] MEDS ORDERED: SANTYL OINT TOP ONE (09:58)
[2017-03-29 10:40] LABS: HEMATOCRIT 26.4 % (42.0-52.0); HEMOGLOBIN 8.6 g/dL (14.0-18.0); MCH 30.1 PG (27-31); MCHC 32.6 g/dL (33-37); MCV 92.3 FL (81-99); MPV 9.9 FL (7.4-10.4); RBC 2.86 XMIL (4.7-6.1)
[2017-03-29 10:41] LABS: INR 1.06; PROTIME 11.2 Seconds (9.2-11.7)
[2017-03-29 10:45] LABS: ALBUMIN 3.4 g/dL (3.5-5.0); CALCIUM 9.2 mg/dL (8.8-10.2); POTASSIUM 3.6 mmol/L (3.5-5.1); TOTAL BILIRUBIN 0.27 mg/dL (0.20-1.00)
[2017-03-29] MEDS: NS 1,000 ML IV SCH (12:10)
[2017-03-29] MEDS ORDERED: VANCOMYCIN IV PER PHARMACY MISC SCH (13:30)
--- NOTE | 2017-03-29 15:16 | HISTORY AND PHYSICAL ---
PRIMARY CARE PHYSICIAN: Dr. Caio Kwan. CHIEF COMPLAINT: Fall with rib pain. HISTORY OF PRESENT ILLNESS: Mr. Dubon is a 76-year-old male, who was discharged from our service about a month and a half ago for diabetic foot ulcer, at which time he had debridement by Dr. Hay. He is on home vancomycin under the care of Dr. Sahil Sawant. Last night, he sustained an accidental fall while trying to maneuver with his walker and sat down on the couch. He hit the chair with the left side of his chest but did not hit his head nor did he lose consciousness. He was on the ground for about 15 minutes until his son was able to come over and help him up and, this morning, he came to the ER because of worsening pain. In the ER, he had rib and chest x-ray which did not show any fractures and chest x-ray did not show anything acute. His laboratory data showed some mild leukocytosis, anemia, hyponatremia and renal insufficiency. He is now going to be admitted for observation status, as he will likely be going to rehab at [facility] within the next 24-48 hours. PAST MEDICAL HISTORY: 1. Recent diabetic foot ulcer, status post debridement. 2. Diabetes mellitus. 3. Hypertension. 4. Metastatic prostate cancer followed by Dr. Reddy. 5. History of colon cancer, status post. 6. Chronic right leg lymphedema. 7. CKD. 8. Anemia of chronic disease. SURGICAL HISTORY: He has had a partial colectomy, cholecystectomy, and prostatectomy, amputation of the right 2nd and 3rd toes with excisional debridement. SOCIAL HISTORY: Patient does not smoke, drink, or use illicit substances. He is and lives with his . His also has chronic medical problems and he has recently been falling quite a bit. FAMILY HISTORY: Noncontributory. REVIEW OF SYSTEMS: A 14-point review of systems obtained and found to be negative with the exception of the HPI. HOME MEDICATIONS: 1. Norvasc 5 mg daily. 2. Aspirin 325 mg daily. 3. Hydrochlorothiazide 12.5 mg daily. 4. Metformin 1000 mg p.o. b.i.d. 5. Naprosyn 500 mg p.o. b.i.d. 6. Vancomycin 1 g q. 24. ALLERGIES: Sulfa and meperidine. PHYSICAL EXAMINATION: VITAL SIGNS: Blood pressure is 141/65, heart rate 77, respiratory rate 18, O2 saturation 97% on room air. Temperature is 98.1 degrees. GENERAL: This is an elderly male, lying in hospital bed in no acute distress. NEUROLOGIC: The patient is awake, alert, and oriented. He follows commands without focal deficits. HEENT: Head is atraumatic and normocephalic. His pupils are equal, round, and reactive to light. Oral mucosa is moist. Trachea is midline. There is no JVD. CHEST: Clear to auscultation bilaterally. CV: Regular rate and rhythm. S1-S2 is noted. No murmurs. GI: Soft, nondistended, and nontender. Bowel sounds positive. EXTREMITIES: Right lower extremity with 2+ pitting edema as well as mild erythema and warmth to touch. Left lower extremity with trace edema and diminished pulses. DIAGNOSTIC DATA: Chest and rib x-ray shows no acute findings. WBC 12.32. Hemoglobin 8.6, hematocrit 26.4, platelets 239. INR 1.06. Sodium 133, potassium 3.6, chloride 98, CO2 of 26, anion gap 9, BUN 31, creatinine 1.3, glucose 151, calcium 9.2, magnesium 2. LFTs within normal limits. Albumin 3.4. ASSESSMENT AND PLAN: 1. Fall with intractable left-sided rib pain. We are going to admit the patient for observation status and consult [facility]. He is likely to go to the facility in the morning. We will continue pain control, incentive spirometry, and consult physical therapy. 2. Diabetic foot ulcer colon. Status post debridement. Dr. Hay and Dr. Sawant have been consulted. We will continue antibiotics renally dosed. 3. Leukocytosis: There does not seem to be any other systemic signs of infection. The patient is not tachycardic or febrile. We will continue antibiotics and monitor closely. 4. Hyponatremia: Likely mildly hypovolemic. We will add some light IV fluids and monitor. We will hold his hydrochlorothiazide as well. 5. Acute kidney injury on chronic kidney disease: The patient is right around his baseline creatinine but we are going to hold his hydrochlorothiazide, metformin, and Naprosyn as they are nephrotoxic. 6. We will have antibiotics renally dosed by the pharmacy and followed by Dr. Sawant. 7. Hypertension: Will increase his Norvasc to 10 mg. 8. Right lower extremity edema: The patient has had an extremity arterial study done in the recent past but I do not see any venous studies. We will go ahead and order a venous study of the right lower extremity to rule out deep venous thrombosis. 9. Anemia: We will check iron studies in the morning as well as thyroid function. 10. Diabetes mellitus: Hemoglobin A1c 6.7%. We will continue pattern blood sugars and sliding scale insulin. 11. Deep vein thrombosis prophylaxis with renally dosed Lovenox. Further recommendations to follow. Dictated by MOI Patiño for Shahid Walker MD cc: MOI Patiño MD I have seen and examined patient and I agree with the above evaluation and plan. moises ENNIS
[2017-03-29] MEDS: VANCOMYCIN 1 GM/NS 1 GM/250 ML IVPB IV SCH (16:19)
[2017-03-29] MEDS: LOVENOX SUBQ SCH ×2 (16:20→21:11)
[2017-03-29] MEDS: HUMALOG SUBQ SCH (16:35)
--- NOTE | 2017-03-29 17:43 | CONSULTATION ---
DATE OF CONSULTATION: 03/29/2017 HISTORY OF PRESENT ILLNESS: This is a 76-year-old male, known to me for toe amputations of his right foot. I have been managing his wound is an outpatient. He had a fall last night and significant left chest and rib pain from the fall, prompting his presentation to the emergency department for pain control. He was admitted. He states wounds overall are doing okay. He has some swelling in his foot intermittently, especially with walking. MEDICAL HISTORY: Diabetes, hypertension, history of prostate cancer, colon cancer, lymphedema of the right leg, chronic kidney disease. PAST SURGICAL HISTORY: He has had a colectomy, cholecystectomy, prostatectomy, amputation right 2nd and 3rd toes. SOCIAL HISTORY: No tobacco, alcohol, or drugs. FAMILY HISTORY: Noncontributory. REVIEW OF SYSTEMS: Ten point negative except for what is mentioned HPI. PHYSICAL EXAMINATION: Vital Signs: Temperature is 98 degrees, pulse 83, blood pressure 151/59, O2 saturation 94% on room air. General: He is alert. He is eating dinner, in no acute distress. Cardiovascular: Normal rate and rhythm. Pulmonary: No increased work of breathing, but he is taking shallow respirations given the pain on his left side, but he is not tachypneic. He is tender over his left posterior chest, but I do not see any bruising or wounds. Peripheral vascular examination: He has stable bilateral lower extremity edema, slightly worse on the right than left. His amputation site is overall clean. There is some chronic-appearing erythema on his foot, but I do not see any acute cellulitis and there is some fibrinous exudate in the bed of his wound, but no necrosis. LABORATORY: White count 12, hematocrit 26, platelets 1.3. Glucose 151. ASSESSMENT/PLAN: This is a 76-year-old male with a history of diabetic-associated right foot wound. He is eating dinner now. I plan on debriding this tomorrow, but this is not urgent. This is just to facilitate his ongoing wound healing. Otherwise, he will continue enzymatic debridement with Santyl and local wound dressing changes. He will need pain management and aggressive pulmonary toileting regarding his left chest injury, but we will continue to follow along. cc: Abelino Hay MD
--- NOTE | 2017-03-29 18:10 | CONSULTATION ---
DATE OF CONSULTATION: 03/29/2017 CONCLUSION: The patient was admitted the hospital after falling on his left side and causing severe pain in his left chest. I have been seeing the patient for treatment of osteomyelitis of the right foot. The patient was on vancomycin and cefepime. He has only 4 doses of antibiotics left to complete a 6-week treatment course. I examined the patient's right foot today and it is erythematous and the wound does not have any granulation tissue that looks healthy forming. Therefore, I think there may be a new infection in the foot. RECOMMENDATIONS: I agree with treating the patient with vancomycin, I substituted cefepime for Zosyn. Also I have obtained a culture from the patient's right foot. I have obtained a culture from the patient's foot and have added cefepime to vancomycin that has already been ordered. DISCUSSION: The patient was being treated with vancomycin and Zosyn for an infection of the right foot which was felt to be osteomyelitis. He was on vancomycin and Zosyn and had only 4 doses left to complete a 6 week treatment course. The patient fell on his left side and injured his ribs on the left side although no fracture was seen on x-ray. He has been admitted to the hospital. LAB: The patient's lab studies thus far show a CBC with a white count of 12,320, hemoglobin 8.6 and platelet count 239,000. Creatinine is 1.3. GFR is 54. Liver function studies are normal. Chest x-ray shows negative acute findings. PAST MEDICAL HISTORY, REVIEW OF SYSTEMS: Eyes and ears: Patient denies trouble hearing or seeing. Neck: No stiffness. Respiratory: No cough or shortness of breath. Cardiac: The patient is having left-sided chest pain. This is due to falling on his left side. There are no palpitations. GI: No nausea, vomiting, or diarrhea. Genitourinary: No dysuria or flank pain. Neurologic: As mentioned above, the patient fell. The exact reason for the fall is uncertain to me. Endocrine: Patient has diabetes but not thyroid disease. Hematopoietic: Patient does have chronic anemia but he does not have a tendency for bleeding. Remainder of the patient's review of systems was completed and was negative. PREVIOUS HOSPITALIZATIONS AND OPERATIONS: He recently was in with an infection in his right foot. He underwent amputation of the 2nd and 3rd toe was performed by Dr. Hay of the right foot. He has had colectomy for cancer of the colon, a cholecystectomy. He has an implanted monitor in his chest, he has had a colonoscopy, he has had his surgery for prostate cancer. MEDICAL DISEASES: Positive for colon and prostate cancer, diabetes mellitus and hypertension. INFECTIOUS DISEASE HISTORY: Negative for pneumonia and UTI. Positive for right foot osteomyelitis. Please see above discussion. FAMILY HISTORY: Positive for diabetes mellitus and cancer. SOCIAL HISTORY: The patient lives in [place]. He is , has dogs pet. He does not smoke cigarettes, drink alcoholic beverages or abuse drugs. ALLERGIES: He is allergic to sulfa drugs, he is also allergic to Demerol. MEDICATIONS: As far as antibiotics go, the patient was getting vancomycin and Zosyn at home. HOME MEDICATIONS: Include hydrochlorothiazide, aspirin, metformin, amlodipine, naproxen and IV vancomycin. PHYSICAL EXAMINATION: Vital Signs: Temperature is 97.2 degrees pulse 78, respirations 18, blood pressure 156/59. General: This is a somewhat ill-appearing elderly male. He is in no acute distress. Head, eyes, ears, nose, and throat: No drainage noted from the nose or ears. Thorax: No increased AP diameter. Lungs: Clear to auscultation. Cardiovascular: Heart rate is regular. Abdomen: Soft and nontender. Extremities: The right leg was swollen. The right foot distally was erythematous. The wound where the 2nd and 3rd toes had been amputated is erythematous and has a kind of seropurulent drainage. The wound itself has a lot of an eschar but no shelby necrosis. There was no odor to the foot. Neurologic: Patient is awake. He can move his extremities. There is no tremor. His sensation is intact to touch. His memory, as regarding his medical history was a little bit decreased. PREVIOUS HOSPITALIZATIONS AND OPERATIONS: He has had a colectomy for colon cancer, cholecystectomy, implanted cardiac device, colonoscopy and surgical removal of prostate cancer. MEDICAL DISEASES: Positive for colon and prostate cancer which are metastatic, diabetes mellitus and hypertension. INFECTIOUS DISEASE HISTORY: Positive for foot cellulitis and osteomyelitis, negative for pneumonia and UTI. FAMILY HISTORY: Positive for diabetes mellitus and cancer. SOCIAL HISTORY: Lives in [place], he is , has a dog as a pet. He does not smoke cigarettes, drink alcoholic beverages or abuse drugs. ALLERGIES: Chart lists allergies to sulfa and meperidine. Thank you for the consult. cc: Sahil Sawant MD
[2017-03-29] MEDS: MAXIPIME 2 GM/NS 2 GM/100 ML IVPB IV SCH (18:34)
[2017-03-29] MEDS: NORCO-5 PO PRN (21:11)
[2017-03-29] MEDS: NORVASC PO SCH (21:11)
[2017-03-30] MEDS: LOVENOX SUBQ SCH ×3 (02:48→20:27)
[2017-03-30] MEDS: HUMALOG SUBQ SCH ×5 (02:57→20:28)
[2017-03-30] MEDS: MAXIPIME 2 GM/NS 2 GM/100 ML IVPB IV SCH ×2 (04:14→16:21)
[2017-03-30] MEDS: NORCO-5 PO PRN ×2 (04:24→10:26)
[2017-03-30 07:09] LABS: HEMATOCRIT 26.7 % (42.0-52.0); HEMOGLOBIN 8.6 g/dL (14.0-18.0); MCH 29.3 PG (27-31); MCHC 32.2 g/dL (33-37); MCV 90.8 FL (81-99); MPV 10.4 FL (7.4-10.4); RBC 2.94 XMIL (4.7-6.1)
[2017-03-30 07:12] LABS: CALCIUM 8.6 mg/dL (8.8-10.2); POTASSIUM 3.6 mmol/L (3.5-5.1)
[2017-03-30] MEDS: NORVASC PO SCH ×2 (09:04→20:27)
[2017-03-30] MEDS: ASPIRIN EC PO SCH (09:04)
[2017-03-30] MEDS: NS 1,000 ML IV SCH (09:05)
--- NOTE | 2017-03-30 12:17 | PROGRESS NOTE ---
DATE: 03/30/2017 SUBJECTIVE: Today, Mr. Dubon refers to be doing a lot better. He has been evaluated by ID and Surgery today. OBJECTIVE: Vital Signs: Blood pressure is 163/61, pulse of 75, respirations 18, and temperature is 98.4 degrees. General: Mr. Dubon is a 76-year-old male. He is in bed and does not seem to be in remarkable distress. HEENT: Mucosa is slightly dry. Anicteric. Acyanotic. Neck: Supple. Chest: Air entry is bilaterally reduced. There are some mild crepitations in the lung casiano. Cardiovascular: Regular rate and rhythm. Abdomen: Soft. There is an old infraumbilical surgical scar with an umbilical hernia defect. Extremities: The right lower leg has about 2+ pedal edema. It is slightly warm with erythematous changes. There is a dressing over the toes, which I did not look at. The left leg has about 1+ pedal edema. LABORATORY DATA: WBC is 10.87 and hemoglobin is 8.6, which is stable. Sodium is 139, potassium is 3.6, chloride is 106, bicarbonate is 26, BUN is 31, creatinine is 3.1. ASSESSMENT: 1. Status post fall with pain to the lateral aspect of the left chest wall. X-rays have ruled out rib fractures. 2. Right diabetic foot ulcer. The patient follows up with Dr. Hay and Dr. Sawant. They are having a culture done on the foot. Will be pending the identification and sensitivity. 3. Mild fluid overload. I think this is probably due to underlying chronic kidney disease. 4. Chronic kidney disease, stage 3A. Noted. 5. Constipation. We are addressing this symptomatically. 6. Right leg erythematous changes consistent with cellulitis. The patient is already on antibiotics and is being followed by Dr. Sawant. In general, we will be waiting on [facility] to evaluate the patient for possible rehab placement. We are going to do magnesium, phosphorus, PTH, and vitamin D to check for bone mineral disease associated with chronic kidney disease, since patient continues to have some weakness. I will discontinue the IV fluids today. Will also do iron studies to check on his anemia, which I think is probably related to chronic kidney disease. cc: Shahid Walker MD
[2017-03-30 12:58] LABS: CALCIUM 9.2 mg/dL (8.8-10.2); MAGNESIUM 2.1 mg/dL (1.5-2.7)
[2017-03-30 13:01] LABS: IRON SATURATION 14 %; TIBC 187 ug/dL; TOTAL IRON 26 ug/dL (53-167); UNBOUND IRON 161 ug/dL (112-346)
[2017-03-30 13:20] LABS: FERRITIN 1303 ng/mL (30-400)
[2017-03-30] MEDS: VANCOMYCIN 1 GM/NS 1 GM/250 ML IVPB IV SCH (17:09)
--- NOTE | 2017-03-30 18:37 | PROGRESS NOTE ---
DATE: 03/30/2017 SUBJECTIVE: She is breathing better. Chest pain is better. OBJECTIVE: Vital Signs: No fevers. No tachycardia. Oxygen saturations high 90s on room air. Blood pressure 160/61. General: He is alert, in no acute distress. Lungs: He is breathing comfortably on room air. Extremities: His right foot dressing is clean, dry, and intact. His wound has some fibrinous tissue in the bed. LABS: White count down to 10, hematocrit stable at 26. Creatinine is 1.3. Glucose is 143. ASSESSMENT AND PLAN: This is a 76-year-old male with fall and injury to his left chest. He also has got a history of a right amputation on his right first toe with some fibrinous tissue in the bed. I do not see any signs of infection here and so we are all healing well. I have discussed risks, benefits, alternatives. He consents to me debriding the wound at the bedside today to facilitate his wound healing. We will do that. Operative note to follow. Otherwise we will continue Santyl and Vashe dressings daily and further care per the Medical service. cc: Abelino Hay MD
[2017-03-30 18:56] LABS: URINE CULTURE NEEDED? NO; URINE MICRO REVIEW NEEDED? NO; URINE SOURCE CATH
[2017-03-30 19:00] LABS: BILIRUBIN URINE NEGATIVE (NEGATIVE); BLOOD URINE TRACE (NEGATIVE); COLOR YELLOW; GLUCOSE URINE 100 mg/dL (NEGATIVE); LEUKOCYTES URINE NEGATIVE (NEGATIVE); NITRITE URINE NEGATIVE (NEGATIVE); PH URINE 5.5; PROTEIN URINE 50 mg/dL (NEGATIVE); SP GRAVITY URINE 1.015; TURBIDITY URINE CLEAR (CLEAR); UR EPITHELIAL CELLS <10 /HPF (<10); URINE BACTERIA NEGATIVE /HPF; URINE RBC <10 /HPF (<10); URINE WBC <10 /HPF (<10); UROBILINOGEN URINE NORMAL (NORMAL)
[2017-03-30 19:20] LABS: UR CREAT RANDOM 65.4 mg/dL (14-26)
--- NOTE | 2017-03-30 19:28 | PROGRESS NOTE ---
DATE: 03/30/2017 PRESENT ILLNESS: The patient has an infected right foot. He has been getting antibiotics through a PICC in his left arm at home. MEDICATIONS: The patient has been on cefepime and vancomycin and this is day 39 of treatment. Therefore, he lacks only 3 more days of antibiotic therapy. PHYSICAL EXAMINATION: Vital Signs: Temperature is 99.3, pulse 93, respirations 18, blood pressure 177/63. Lungs: Clear to auscultation. Cardiovascular: Regular heart rate. Abdomen: Soft and nontender. Extremities: The patient's right foot had a dressing on it. The dressing is intact. There is no visible erythema. LAB AND X-RAY: CBC today shows a white count of 10,860, hemoglobin 8.6, platelet count 267,000. Creatinine is 1.3. GFR is 54. Liver function studies are normal. Gram stain shows gram-negative cocci. ASSESSMENT AND PLAN: The patient has a right foot infection. It was debrided today by Dr. Hay. My plan is to continue the current antibiotics for 3 more days to complete a 6 week treatment course. The patient may require further antibiotics depending on the culture taken from the foot. COMORBIDITIES: Include diabetes mellitus, and prior history of colon and prostate cancers. cc: Sahil Sawant MD
--- NOTE | 2017-03-30 22:00 | CONSULTATION ---
DATE OF CONSULTATION: 03/30/2017 PREOPERATIVE DIAGNOSIS: Right-sided diabetic foot wound at the 1st toe amputation site. POSTOPERATIVE DIAGNOSIS: Right-sided diabetic foot wound at the 1st toe amputation site. PROCEDURE PERFORMED: Excisional debridement of the skin and subcutaneous tissue. ESTIMATED BLOOD LOSS: Less than 5 mL. SPECIMENS: None. INDICATIONS: A 76-year-old male with a right foot 1st toe amputation. He has developed some fibrinous tissue in the bed. Need for debridement for further wound healing. Wound was 2 x 2 cm and approximately 1 cm deep. OPERATIVE FINDINGS: There is some fibrinous tissue, but otherwise healthy bleeding granulation tissue in the bed of the wound. OPERATIVE NOTE: Risks, benefits, alternatives discussed with the patient, he consented to excisional debridement. His right foot dressing is removed. Using sterile scissors, we debrided back the fibrinous tissue back to healthy bleeding granulation tissue. We confirmed that hemostasis was obtained. There was no evidence of pus or under draining collection. No other necrosis. We reapplied a Santyl dressing. We will continue wound care going forward. cc: Abelino Hay MD
[2017-03-31] MEDS: NORCO-5 PO PRN (03:40)
[2017-03-31] MEDS: LOVENOX SUBQ SCH ×3 (04:16→21:59)
[2017-03-31] MEDS: MAXIPIME 2 GM/NS 2 GM/100 ML IVPB IV SCH ×2 (04:54→16:17)
[2017-03-31] MEDS: HUMALOG SUBQ SCH ×4 (06:32→21:57)
[2017-03-31 06:53] LABS: HEMATOCRIT 28.9 % (42.0-52.0); HEMOGLOBIN 9.3 g/dL (14.0-18.0); MCH 29.1 PG (27-31); MCHC 32.2 g/dL (33-37); MCV 90.3 FL (81-99); MPV 9.8 FL (7.4-10.4); RBC 3.2 XMIL (4.7-6.1)
[2017-03-31] MEDS: NORCO-7.5 PO PRN ×2 (06:57→13:52)
[2017-03-31 07:00] LABS: AGAP 15; BUN 24 mg/dL (8-22); CALCIUM 9.3 mg/dL (8.8-10.2); CHLORIDE 97 mmol/L (98-107); COSMO 277; POTASSIUM 3.8 mmol/L (3.5-5.1); SODIUM 135 mmol/L (136-145); TCO2 23 mmol/L (25-35)
[2017-03-31] MEDS: NORVASC PO SCH ×2 (09:56→21:58)
[2017-03-31] MEDS: ASPIRIN EC PO SCH (09:56)
[2017-03-31] MEDS ORDERED: MILK OF MAGNESIA PO ONE (13:13)
--- NOTE | 2017-03-31 15:02 | PROGRESS NOTE ---
DATE: 03/31/2017 SUBJECTIVE: Today Mr. Dubon referred to be doing a lot better. He just has not had any bowel movements since admission. He denies any chest pain. OBJECTIVE: Vitals: Blood pressure is 174/63, pulse of 85, respirations 18, temperature is 98.2 degrees. General: Mr. Dubon is 76 years old, a nice gentleman. He is in bed, not in any distress. HEENT: Mucosa is pink and moist. Anicteric. Acyanotic. Neck: Supple. Chest: Clear. Cardiovascular: Regular rate and rhythm. There are no murmurs, no rubs. Abdomen: Soft. There is an old infraumbilical surgical scar. There is also an umbilical hernia defect. Extremities: Right lower leg has about 1+ pedal edema. It is slightly warm and erythematous changes consistent with some stasis dermatitis. There is dressing over the toes. The left leg has also 1+ pedal edema. LABORATORY DATA: WBC is 15.31, hemoglobin is 9.3, platelet count of 289. Chemistry is reviewed. Sodium is 135, potassium is 3.8, chloride 97, bicarbonate is 23. Creatinine is down to 1.1. ASSESSMENT: 1. Status post fall with blunt trauma to left lateral chest wall. X-rays have rule out rib fractures. Patient is doing a lot better now. 2. Right diabetic foot ulcer, status post incision and drainage by Dr. Hay. He is the surgeon. I spoke to him this morning and he recommends not doing any more procedures at least for now, and that if it is okay with the medical team the patient can be discharged at any time. The wound culture so far is growing gram-negative yamel. We are still waiting for the identification and sensitivity. 3. Acute on chronic kidney disease. Creatinine has actually normalized and is now 1.1. We will continue to monitor and make sure we avoid any nephrotoxic drugs. 4. Constipation. Will continue to address this symptomatically. 5. Right leg erythematous changes consistent with stasis dermatitis with possible superimposed cellulitis. Patient is on antibiotics. 6. Vitamin D deficiency. We will restart the patient on supplements. 7. Anemia of chronic disease. PLAN: So in general I think Mr. Dubon is doing fine. We will give him milk of magnesia for the constipation. We are going to replace the vitamin D deficiency. We are still awaiting the gram- negative yamel identification and sensitivity from the foot infection. Hopefully will be able to discharge Mr. Dubon tomorrow if his rehab arrangements have been done. cc: Shahdi Walker MD
--- NOTE | 2017-03-31 15:47 | PROGRESS NOTE ---
DATE: 03/31/2017 SUBJECTIVE: Feels well. He is still having some pain in his chest at night related to his rib fractures but pain medicine is improving. OBJECTIVE: No fevers. No tachycardia. Blood pressure 127/49. He is on room air. Cardiovascular: Normal rate, regular rhythm. His right foot dressing is clean, dry, and intact. Dressing changes are going well. LABORATORY DATA: White count 15, hematocrit 28, creatinine is 1.1. Glucose 153. ASSESSMENT AND PLAN: A 76-year-old male, status post right 1st toe amputation. Wound is clean . Yesterday, I did not see any signs of local infection. Dr. Sawant is following. Otherwise, pain control in the setting of rib injuries is his main issue. From a surgical standpoint, I do not plan any other further debridements as an inpatient. Continue Santyl and vashe dressings daily, and I can see him at [facility]. cc: Abelino Hay MD MTDD
[2017-03-31] MEDS: VANCOMYCIN 1 GM/NS 1 GM/250 ML IVPB IV SCH (17:55)
[2017-04-01] MEDS: NORCO-7.5 PO PRN (00:41)
[2017-04-01] MEDS: MAXIPIME 2 GM/NS 2 GM/100 ML IVPB IV SCH (04:29)
[2017-04-01] MEDS: HUMALOG SUBQ SCH ×2 (07:00→11:21)
[2017-04-01 07:15] LABS: HEMATOCRIT 29.6 % (42.0-52.0); HEMOGLOBIN 9.7 g/dL (14.0-18.0); MCH 29.6 PG (27-31); MCHC 32.8 g/dL (33-37); MCV 90.2 FL (81-99); MPV 9.6 FL (7.4-10.4); RBC 3.28 XMIL (4.7-6.1)
[2017-04-01 07:40] LABS: CALCIUM 8.4 mg/dL (8.8-10.2); POTASSIUM 3.9 mmol/L (3.5-5.1)
[2017-04-01] MEDS: NORVASC PO SCH (08:18)
[2017-04-01] MEDS: ASPIRIN EC PO SCH (08:18)
[2017-04-01 08:56] VITALS: BP 149/109
[2017-04-01] MEDS: LOVENOX SUBQ SCH (09:48)
[2017-04-01] MEDS ORDERED: DULCOLAX PR ONE (12:04)
--- NOTE | 2017-04-01 12:56 | PROGRESS NOTE ---
DATE: 04/01/2017 SUBJECTIVE: Today Mr. Dubon refers to be doing a whole lot better. Has not had any bowel movement yet, but he denies any chest pain. OBJECTIVE: Vital signs: Blood pressure is 149/109, pulse of 94, respirations 18, temperature 98.4 degrees. General exam: Mr. Dubon is a 76-year-old, male. He is in bed. Does not have any distress. HEENT: Mucosa is pink and moist. Anicteric. Acyanotic. Neck: Supple. Chest: Good air entry bilaterally. No crepitations. No rhonchi. Cardiovascular: Regular rate and rhythm. Abdomen: Soft, nontender. There is an old infraumbilical surgical scar. There is also umbilical hernia defect. Abdomen is slightly distended. Bowel sounds are slightly reduced. Extremities: About 1+ pedal edema on the left, and the right is about 2+ pedal edema. It is slightly erythematous with chronic changes consistent with stasis. There is a dressing over the right toes. LABORATORY DATA: WBC is 14.79, hemoglobin is 9.7, platelet count of 315. Chemistry is reviewed, completely normal. Wound culture is positive for Acinetobacter baumannii complex. ASSESSMENT: 1. Status post fall with blunt trauma to the left lateral chest wall. X-rays have ruled out any rib fractures. 2. Right diabetic foot ulcer status post incision and drainage by Dr. Hay. 3. Acinetobacter baumannii wound infection. Patient has been switched from cefepime to oral levofloxacin, and will follow up with Dr. Sawant. 4. Acute kidney injury. Creatinine has actually normalized. 5. Constipation. Will give her 1 dose of Dulcolax. The patient has not improved with the MiraLAX. 6. Right leg erythematous changes consistent with stasis dermatitis and possible underlying venous insufficiency. The patient is advised to be using the compression stockings. 7. Vitamin D deficiency. We will replace this. 8. Anemia of chronic disease. PLAN: So, in general I think Mr. Dubon is relatively stable. We are going to discharge him to [facility] to continue physical rehabilitation. Please refer to the details of the discharge summary in his chart. cc: Shahid Walker MD
--- NOTE | 2017-04-01 13:04 | DISCHARGE SUMMARY ---
ADMISSION DATE: 03/29/2017 DISCHARGE DATE: 04/01/2017 CONSULTATIONS: 1. Dr. Sahil Sawant with infectious disease. 2. Dr. Johnny Hay with general surgery. PERTINENT PROCEDURES: 1. Chest x-ray negative. 2. Ribs x-ray negative. DISCHARGE DIAGNOSES: 1. Status post fall with blunt trauma to left lateral chest wall. X-rays rule out rib fractures. Improved. 2. Right diabetic foot ulcer status post incision and drainage by Dr. Hay. His wound culture rule out Enterobacter baumannii complex. He is being treated by Dr. Sahil Sawant of infectious disease. The patient is being discharged to rehabilitation to continue with physical therapy, intravenous antibiotics and wound care, stable. 3. Acute on chronic kidney disease. Stable. 4. Constipation. Continue with bowel regimen. 5. Right leg erythematous changes consistent with stasis dermatitis with possible superimposed cellulitis. Continue antibiotics. 6. Vitamin D deficiency. Continue supplementation. 7. Anemia of chronic disease. Stable. HOSPITAL COURSE: Briefly, Mr. Dubon is a 76-year-old male, who was just discharged from our service a month and a half ago for diabetic foot ulcer. At that time, he had a debridement by Dr. Hay. He was on home vancomycin under the care of Dr. Sahil Sawant with infectious disease. The night before his admission he sustained an accidental fall while he was trying to maneuver his walker to sit down on the couch. He hit the chair with the left side of his chest, but did not hit his head or lose consciousness. He was on the ground for about 15 minutes until his son was able to come over and help him up. He came to the ED because of worsening pain. He had x-rays of his chest and ribs that did not show any fractures or anything acute. His laboratory data showed some mild leukocytosis, anemia and hyponatremia, as well as renal insufficiency. He was admitted for a fall with intractable left-sided rib pain for control of pain, as well as to work with physical therapy and started on IV antibiotics and continued on IV fluids. Dr. Sawant was consulted. He felt that there may be a new infection in the foot, so Dr. Johnny Hay was consulted. He had been managing his wound on an outpatient basis. He did an excisional debridement of the skin and subcutaneous tissue on the right side of his diabetic foot wound at the first toe amputation site. Cultures were sent off and they did grow Acinetobacter baumannii complex. He will continue on IV antibiotics as per Dr. Sahil Sawant. [employer] was consulted for rehab placement. He has been accepted to [facility] where he will continue with antibiotics, wound care and physical therapy. After rehab he will continue to follow Dr. Sawant and Dr. Hay. VITAL SIGNS AT TIME OF HIS DISCHARGE: Temperature is 98.4 degrees, heart rate 94, respirations 18, blood pressure 149/109, O2 is 97% on room air. DISCHARGE DIET: Diabetic. DISCHARGE MEDICATIONS: As per Dr. Walker. FOLLOWUP: The patient is being discharged to [facility]. He will return to the ED for any worsening of symptoms. DISCHARGE TIME: 30 minutes. Dictated by MOI Rios for Shahid Walker MD cc: Shahid Walker MD
--- NOTE | 2017-04-01 14:52 | PROGRESS NOTE ---
DATE: 04/01/2017 The patient has a foot infection. It is his right foot. A culture taken from the foot grew Acinetobacter. It is sensitive to Levaquin. The patient was placed on Levaquin. He will be going to rehab, and I have requested that the patient see me in the office 2 weeks after discharge. He has cellulitis of the foot and culture from the wound of the foot grew Acinetobacter as mentioned above. cc: Sahil Sawant MD
[2017-04-02] MEDS ORDERED: VITAMIN D PO SCH (09:00)
[2017-04-02] MEDS ORDERED: LEVAQUIN PO SCH (09:00)
--- NOTE | 2017-04-05 07:13 | Extremity Venous Study ---
PROCEDURE NAME: Venous U/S Right Leg - 03/29/2017 REFERRING PHYSICIAN: Dr. Walker. INTERPRETING PHYSICIAN: Dr. Kwan. ROUND BONER: [place]. INDICATION: The patient has right lower extremity pain and edema. DESCRIPTION OF PROCEDURE: The right lower extremity is imaged. The common femoral, superficial femoral, deep femoral, and popliteal veins are imaged. The posterior tibial and peroneal veins are not well imaged. The left common femoral vein is imaged for comparison purposes. Doppler is used to evaluate the veins for spontaneity, phasicity, respiratory excursion, and distal augmentation. The veins identified are compressible. No intraluminal clot is seen. There is an enlarged lymph node noted in the right groin. INTERPRETATION: No evidence of deep or superficial venous thrombosis of the right lower extremity in the veins identified. An enlarged lymph node is noted in the right groin. cc: MD John Bonilla CRNP
== END 2017-04-01 13:45 ==
LOC: ED 07:08 → 3N 07:08 → OBSVTOIN 10:19
PROVIDERS: ATTEND Internal Medicine

== ENCOUNTER 2018-11-15 10:16 | Inpatient (IN) ==
[2018-11-15] MEDS ORDERED: ZOFRAN IV PRN (11:33)
--- NOTE | 2018-11-15 11:55 | EKG Report ---
Test Performed on : 11/15/2018 11:49:03 AM Test Reason : chest pain Blood Pressure : / mmHG Vent. Rate : 082 BPM Atrial Rate : 082 BPM P-R Int : 170 ms QRS Dur : 080 ms QT Int : 398 ms P-R-T Axes : 032 070 072 degrees QTc Int : 464 ms Normal sinus rhythm. Normal ECG When compared with ECG of 09-MAR-2018 06:43, No significant change was found Unconfirmed Result
[2018-11-15 12:16] LABS: BASO# 0.03 X1000 (0.0-0.2); BASO% 0.3 % (0.0-0.8); EOS# 0.11 X1000 (0.0-0.7); HEMATOCRIT 25.5 % (42.0-52.0); IMM GRAN# 0.09 X1000 (0.0-0.04); IMM GRAN% 0.9 % (0.0-0.5); LYMPH# 1.89 X1000 (1.2-3.4); LYMPH% 17.9 % (20.5-51.1); MCH 30.5 PG (27-31); MCHC 31.4 g/dL (33-37); MCV 97.3 FL (81-99); MONO% 7.6 % (1.7-9.3); MPV 9.8 FL (7.4-10.4); NEUT# 7.64 X1000 (1.4-6.5); NEUT% 72.3 % (42.2-75.2); PLT 333 X1000 (130-400); RBC 2.62 XMIL (4.7-6.1); RDW 15.2 % (11.5-14.5); WBC 10.56 X1000 (4.8-10.8)
--- NOTE | 2018-11-15 12:20 | Diag Imaging Result Doc PS360 ---
EXAM: CHEST-PORTABLE 11/15/2018 HISTORY: sx TECHNIQUE: AP portable at 1204 COMMENT: There is atelectasis in the right middle lobe. Otherwise the appearance of the chest has not changed significantly since 03/09/2018. IMPRESSION: Right middle lobe atelectasis. Electronically signed by Kilo Shaw 11/15/2018 12:18 PM
[2018-11-15 12:25] LABS: INR 0.99; PROTIME 13.9 Seconds (11.0-16.0)
[2018-11-15 12:26] LABS: PTT 29.1 Seconds (22.3-41.8)
[2018-11-15 12:38] LABS: AGAP 14; ALB/GLOB RATIO 0.7; ALBUMIN 3.2 g/dL (3.5-5.0); ALKALINE PHOSPHATASE 93 U/L (32-122); BUN 51 mg/dL (8-22); CALCIUM 8.6 mg/dL (8.8-10.2); CHLORIDE 98 mmol/L (98-107); COSMO 290; CREATININE 2.5 mg/dL (0.7-1.2); ESTIMATED GFR 25; GLUCOSE 315 mg/dL (70-104); GOT 10 U/L (10-34); GPT 5 U/L (10-44); MAGNESIUM 1.9 mg/dL (1.5-2.7); POTASSIUM 4.3 mmol/L (3.5-5.1); SODIUM 132 mmol/L (136-145); TCO2 20 mmol/L (25-35); TOTAL BILIRUBIN < 0.15 mg/dL (0.20-1.00); TOTAL PROTEIN 7.9 g/dL (6.3-8.3)
[2018-11-15] MEDS ORDERED: VANCOMYCIN IV PER PHARMACY MISC SCH (13:00)
--- NOTE | 2018-11-15 13:17 | HISTORY AND PHYSICAL ---
HISTORY: Mr. Dubon is a 78-year-old gentleman followed by Dr. Caio Kwan, and he is here because of left foot diabetic ulcer. He has diabetes and peripheral neuropathy. Dr. Hay is planning on doing some debridement on the left foot. He denies fever or chills. He does go see [facility]. PAST MEDICAL HISTORY: 1. Diabetes mellitus type 2. 2. Hypertension. 3. Chronic kidney disease. 4. Gastroesophageal reflux disease. PAST SURGICAL HISTORY: 1. Right foot toe amputation. It looks like a metatarsal amputation. 2. Status post prostate surgery, not sure of the details. 3. Colon surgery. 4. Gallbladder surgery. 5. Cholecystectomy. ALLERGIES: 1. Sulfa causes nausea and vomiting. 2. Demerol unknown reaction. FAMILY HISTORY: History of diabetes and history of hypertension in father. SOCIAL HISTORY: No history of alcohol or tobacco. 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 He is retired at this time. REVIEW OF SYSTEMS: General: He does not report any fever or chills. No change in weight. HEENT: No reports of visual or hearing acuity changes. No complaints of cervical adenopathy or upper respiratory type complaints. Respiratory: No increased work of breathing or dyspnea. Cardiovascular: No chest pain or tachy palpitation. GI/: No gross hematuria or dysuria. No change in his bowels reported. Endocrinologic/Hematologic: No significant history. PHYSICAL EXAMINATION: VITAL SIGNS: Temperature 98.7 degrees, pulse 80, respirations 20, and blood pressure 134/55. HEENT: Pupils are equal and round. LUNGS: Clear in all lung casiano. CARDIOVASCULAR: Regular rhythm and rate without murmur or S3. ABDOMEN: Soft. SKIN: Warm and dry. EXTREMITIES: Right foot status post ray amputation. Left foot was bandaged. LABORATORY: White count 42488, hematocrit 25, hemoglobin is 8, and platelet count 333,000. Sodium 132, potassium 4.3, chloride 98, BUN 51, and creatinine 2.1. Blood sugar was 315. AST 10, ALT 5, and albumin 3.2. His creatinine back in December of 2017 was 1.4, but since that time he has run 2.2 or higher so I think he does have chronic kidney disease, and he is probably at baseline. PLAN: We will watch his renal function and electrolytes, and get pattern sugars. I think the plan is for debridement of his left foot per Dr. Hay. cc: Jean Quick MD
[2018-11-15] MEDS ORDERED: VANCOMYCIN 2,100 MG in NS 500 ML IV ONE (14:00)
[2018-11-15] MEDS: NS 1,000 ML IV SCH (15:52)
[2018-11-15] MEDS: ZOSYN 2.25 GM in NS 50 ML IV SCH ×2 (15:52→21:46)
[2018-11-15 18:33] LABS: URINE SOURCE CLEAN CATCH
[2018-11-15 18:41] LABS: BILIRUBIN URINE NEGATIVE (NEGATIVE); BLOOD URINE SMALL (NEGATIVE); COLOR YELLOW; GLUCOSE URINE >1000 mg/dL (NEGATIVE); KETONE URINE NEGATIVE (NEGATIVE); LEUKOCYTES URINE LARGE (NEGATIVE); NITRITE URINE POSITIVE (NEGATIVE); PH URINE 6.5; PROTEIN URINE 100 mg/dL (NEGATIVE); SP GRAVITY URINE 1.011; TURBIDITY URINE HAZY (CLEAR); UROBILINOGEN URINE NORMAL (NORMAL)
[2018-11-15 18:43] LABS: UR EPITHELIAL CELLS <10 /HPF (<10); URINE BACTERIA 4+ /HPF; URINE RBC <10 /HPF (<10); URINE WBC TNTC /HPF (<10)
[2018-11-15 18:53] LABS: URINE YEAST NONE SEEN
[2018-11-15] MEDS: HUMALOG SUBQ SCH ×2 (19:29→21:46)
--- NOTE | 2018-11-15 20:08 | GENERAL SURGERY CONSULTATION ---
DATE: 11/15/2018 HISTORY OF PRESENT ILLNESS: This is a 78-year-old gentleman well known to me. He has a history of bilateral lower extremity diabetic ulcers of his feet requiring transmetatarsal amputation on the right, and we have had a nonhealing ulcer, decubitus in nature, of his left heel that has been debrided on a outpatient basis. He is at [facility], a patient of Dr. Mancinis, has noted worsening ulceration of his left heel, but otherwise he has been afebrile. Some discomfort, and presents for further management. MEDICAL HISTORY: Diabetes, hypertension, history of early prostate cancer, gastroesophageal reflux. SURGICAL HISTORY: Right forefoot amputation, prostatectomy, colon surgery, gallbladder surgery, cholecystectomy. FAMILY HISTORY: Diabetes, hypertension. SOCIAL HISTORY: No tobacco or alcohol. 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 PHYSICAL EXAMINATION: Vital signs: Temperature is 98.4 degrees, pulse 76, blood pressure 109/53, oxygen saturation 96%. He is 232 pounds, 6 foot 1 inch. General: He is alert. HEENT: There is no scleral icterus. No cervical mass. Cardiovascular: Normal rate. Pulmonary: No increased work of breathing. Abdomen: Soft. Skin: Warm, dry. Extremities: The right forefoot is well healed. There is no heel ulcer. His left heel ulcer is necrotic with some cellulitis extending around it overlying his calcaneus. Peripheral vascular: Well perfused. He does have bilateral lower extremity edema. Lymphatic: No adenopathy noted. Psychiatric: Appropriate affect. Neurologic: Diminished sensation bilateral. LABORATORY DATA: White count is 10, hematocrit is 25, platelets 333,000. Creatinine is 2.5. Glucose 200s to 300s. LFTs are normal. Albumin 3.2. ASSESSMENT AND PLAN: This is a 78-year-old gentleman with left heel ulcer. This is going to need surgical debridement in the operating room. We will post him for tomorrow. I worry that this is going to extend down to the bone, and the likelihood of healing this will be poor going forward. Will need offloading antibiotics, nutritional support as we would do otherwise for wounds. His right foot looks okay. cc: Abelino Hay MD
[2018-11-16 06:03] LABS: URINE SOURCE CLEAN CATCH
[2018-11-16 06:07] LABS: BILIRUBIN URINE NEGATIVE (NEGATIVE); BLOOD URINE SMALL (NEGATIVE); COLOR YELLOW; GLUCOSE URINE 500 mg/dL (NEGATIVE); KETONE URINE NEGATIVE (NEGATIVE); LEUKOCYTES URINE LARGE (NEGATIVE); NITRITE URINE POSITIVE (NEGATIVE); PH URINE 6.5; PROTEIN URINE 100 mg/dL (NEGATIVE); SP GRAVITY URINE 1.006; TURBIDITY URINE HAZY (CLEAR); UROBILINOGEN URINE NORMAL (NORMAL)
[2018-11-16] MEDS: NS 1,000 ML IV SCH ×4 (06:12→21:18)
[2018-11-16] MEDS: ZOSYN 2.25 GM in NS 50 ML IV SCH ×3 (06:12→21:18)
[2018-11-16 06:34] LABS: UR EPITHELIAL CELLS <10 /HPF (<10); URINE BACTERIA NEGATIVE /HPF; URINE RBC <10 /HPF (<10); URINE WBC TNTC /HPF (<10)
[2018-11-16 06:37] LABS: URINE CASTS NONE SEEN; URINE CRYSTALS NONE SEEN; URINE SMALL ROUND CELLS NONE SEEN; URINE YEAST NONE SEEN
[2018-11-16] MEDS: HUMALOG SUBQ SCH ×4 (06:40→21:18)
[2018-11-16 06:55] LABS: BASO# 0.03 X1000 (0.0-0.2); BASO% 0.4 % (0.0-0.8); EOS# 0.15 X1000 (0.0-0.7); EOS% 1.8 % (0.0-10.0); HEMATOCRIT 26.4 % (42.0-52.0); HEMOGLOBIN 8.3 g/dL (14.0-18.0); IMM GRAN# 0.05 X1000 (0.0-0.04); IMM GRAN% 0.6 % (0.0-0.5); LYMPH# 1.71 X1000 (1.2-3.4); LYMPH% 20.1 % (20.5-51.1); MCH 30.5 PG (27-31); MCHC 31.4 g/dL (33-37); MCV 97.1 FL (81-99); MONO# 0.89 X1000 (0.11-0.59); MONO% 10.5 % (1.7-9.3); MPV 10.1 FL (7.4-10.4); NEUT# 5.66 X1000 (1.4-6.5); NEUT% 66.6 % (42.2-75.2); PLT 342 X1000 (130-400); RBC 2.72 XMIL (4.7-6.1); RDW 15.1 % (11.5-14.5); WBC 8.49 X1000 (4.8-10.8)
[2018-11-16 07:23] LABS: AGAP 12; ALB/GLOB RATIO 0.7; ALKALINE PHOSPHATASE 79 U/L (32-122); BUN 47 mg/dL (8-22); CALCIUM 8.3 mg/dL (8.8-10.2); CHLORIDE 107 mmol/L (98-107); COSMO 290; CREATININE 2.2 mg/dL (0.7-1.2); ESTIMATED GFR 29; GLUCOSE 128 mg/dL (70-104); GOT 9 U/L (10-34); GPT < 5 U/L (10-44); POTASSIUM 3.9 mmol/L (3.5-5.1); SODIUM 138 mmol/L (136-145); TCO2 19 mmol/L (25-35); TOTAL BILIRUBIN 0.19 mg/dL (0.20-1.00); TOTAL PROTEIN 7.6 g/dL (6.3-8.3)
[2018-11-16] MEDS ORDERED: ROBINUL ONE (15:56)
[2018-11-16] MEDS ORDERED: XYLOCAINE-MPF 2% ONE (15:56)
[2018-11-16] MEDS ORDERED: DIPRIVAN 1% ONE (15:57)
[2018-11-16] MEDS ORDERED: EPHEDRINE ONE (15:58)
--- NOTE | 2018-11-16 16:05 | PROGRESS NOTE ---
DATE: 11/16/2018 SUBJECTIVE: Mr. Dubon is comfortable. Had a good night's sleep. No complaints. OBJECTIVE: Vital signs: He remains afebrile. Temperature 98.5 degrees, pulse 80, respirations 20, blood pressure 119/49. HEENT: Pupils are equal and round. Lungs: Clear in all lung casiano. Cardiovascular: Regular rhythm and rate without murmur or S3. Abdomen: Soft, nontender, nondistended. No organomegaly. Extremities: No pedal edema. Left foot is wrapped up. His urine output was 2,400 mL. ASSESSMENT AND PLAN: 1. This is a 78-year-old with left heel ulcer. He is going to need surgical debridement and that is planned for this afternoon. May extend down to the bone. We will try and stage his infection and will need offloading, antibiotics, nutritional support for his wounds, and topical care. 2. Diabetes mellitus type 2 with peripheral neuropathy. 3. Nutrition looks good. 4. Review of his orders. He is getting normal saline 75 mL an hour, vancomycin 1800 mg IV q.48 hours, Zosyn 2.25 g q.8 hours. cc: Jean Quick MD
--- NOTE | 2018-11-16 18:15 | OPERATIVE NOTE ---
PROCEDURE DATE: 11/16/2018 PREOPERATIVE DIAGNOSIS: Necrotic wound, left calcaneus. POSTOPERATIVE DIAGNOSIS: Necrotic wound, left calcaneus. PROCEDURE PERFORMED: Excisional debridement down to and including the level of the calcaneus bone, 8 x 5 cm. ANESTHESIA: General. INDICATION: A 78-year-old gentleman who has had a long-standing decubitus ulcer of left heel that has become more necrotic with a dry eschar. OPERATIVE FINDINGS: There was necrotic tissue extending down to the periosteum of the calcaneus. We debrided this back to healthy bleeding bone. There was no gross purulence. SPECIMENS: 1. Excisional debridement. 2. Bone for culture. OPERATIVE NOTE: Risks, benefits, and alternatives were discussed with the patient and he consented to the procedure. He was seen preoperatively and surgical site was marked. He was taken to the operating room and placed in supine position. General anesthesia was induced. His left foot was prepped with Betadine and draped in the usual fashion. After time-out, using a 15 blade scalpel, we excised the necrotic eschar off the calcaneus, exposing it. Then using a rongeur forceps, we debrided the periosteum back to healthy bleeding bone. This was achieved relatively easily. We had bleeding tissue in each dimension. We confirmed hemostasis. Saline gauze, Kerlix, and Jose Luis wrap dressing were applied. He tolerated it well, was awoken, and transferred to the recovery room. No family was available. Counts were correct. cc: Abelino Hay MD
[2018-11-17] MEDS: NS 1,000 ML IV SCH ×3 (06:24→22:15)
[2018-11-17] MEDS: HUMALOG SUBQ SCH ×4 (06:24→22:16)
[2018-11-17] MEDS: ZOSYN 2.25 GM in NS 50 ML IV SCH ×3 (06:24→20:00)
[2018-11-17] MEDS: PERIDEX MT SCH ×2 (09:47→20:00)
--- NOTE | 2018-11-17 13:27 | PROGRESS NOTE ---
DATE: 11/17/2018 HISTORY OF PRESENT ILLNESS: He is comfortable. Ate most of his lunch. Afebrile. No complaints of pain, breathing comfortably. OBJECTIVE: Vital Signs: Temperature 98.2 degrees, pulse 76, respirations 16, blood pressure 127/58. Eyes: Pupils are equal and round. Lungs: Clear in all lung casiano. Cardiovascular exam: Regular rhythm and rate without murmur or S3. : Urine output is 2000 mL. Blood sugars 157, 171, and 138. ASSESSMENT AND PLAN: 1. Excisional debridement of necrotic tissue extending down to the periosteum of the calcaneus. Debrided this back to healthy, but bleeding bone. No gross purulence. Continue present antibiotics and wound care. 2. Diabetes mellitus type 2. Sugars look under good control. 3. Nutrition looks good. Review of his orders: Continue current orders. He is on vancomycin and Zosyn. cc: Jean Quick MD
--- NOTE | 2018-11-17 14:34 | GENERAL SURGERY PROGRESS NOTE ---
DATE: 11/17/2018 SUBJECTIVE: He is doing okay. No pain. No drainage from his wounds. His wound cultures are growing gram-negative rods. No fevers, no tachycardia overnight. I reviewed his labs. Glucose 138. ASSESSMENT AND PLAN: I have spoken with the family and patient about the findings. His wound does extend down to bone. We were able to debride back to bleeding bone, but the probability of healing this long-term is low. I suspect he will ultimately progress to a below-knee amputation but we will continue local wound care and following him going forward. cc: Abelino Hay MD
[2018-11-17] MEDS: VANCOMYCIN 1,800 MG in NS 500 ML IV SCH (15:01)
[2018-11-17] MEDS ORDERED: TUMS PO ONE (21:51)
[2018-11-18] MEDS: HUMALOG SUBQ SCH ×4 (06:01→21:30)
[2018-11-18] MEDS: ZOSYN 2.25 GM in NS 50 ML IV SCH ×3 (06:01→21:28)
[2018-11-18] MEDS: NS 1,000 ML IV SCH ×2 (06:02→18:24)
[2018-11-18] MEDS: PERIDEX MT SCH ×2 (10:09→21:28)
--- NOTE | 2018-11-18 10:37 | PROGRESS NOTE ---
DATE: 11/18/2018 SUBJECTIVE: Mr. Dubon is status post left heel debridement per Dr. Hay. He is awake and cooperative this morning. We will leave the surgical dressing intact and dry, and will leave it in place today. cc: Neela Rudd MD
--- NOTE | 2018-11-18 10:49 | PROGRESS NOTE ---
DATE: 11/18/2018 SUBJECTIVE: He is feeling good, had a good night. No complaints. Left foot is wrapped up in Jose Luis bandage. OBJECTIVE: Vital signs: Temperature 98.3 degrees, pulse 80, respirations 20, blood pressure 127/45. HEENT: Pupils are equal and round. Lungs: Clear in all lung casiano. Cardiovascular: Regular rhythm and rate without murmur or S3. Genitourinary: Urine output is 1300 mL. LABORATORY DATA: Blood sugars 171, 204, 133. ASSESSMENT AND PLAN: 1. The wound apparently does go down to the bone. We were able to debride back to bleeding bone but the probability of healing long-term is low. Suspect that ultimately need to progress to a [id number] amputation per Dr. Hay. Continue local wound care going forward and see how we do clinically. So had excisional debridement of necrotic tissue extending down to the periosteum of the calcaneus. 2. Diabetes mellitus type 2. 3. Nutrition looks good. REVIEW OF ORDERS: I do not see any change at this point. Continue vancomycin and Zosyn. cc: Jean Quick MD
[2018-11-18] MEDS: TUMS PO PRN (17:10)
[2018-11-19] MEDS: NS 1,000 ML IV SCH ×2 (02:59→18:29)
[2018-11-19] MEDS: ZOSYN 2.25 GM in NS 50 ML IV SCH ×3 (04:47→21:12)
[2018-11-19] MEDS: HUMALOG SUBQ SCH ×4 (06:01→21:13)
[2018-11-19] MEDS: PERIDEX MT SCH ×2 (10:12→21:12)
--- NOTE | 2018-11-19 10:26 | PROGRESS NOTE ---
DATE: 11/19/2018 SUBJECTIVE: He is comfortable. He has a hard time trying to get up to bedside commode, so I encouraged him to use the urinal. Would rather not put a catheter if we do not have to. OBJECTIVE: Vital signs: Temperature 98.6 degrees, pulse 84, respirations 18, blood pressure 146/72. HEENT: Pupils are equal and round. Lungs: Clear in all lung casiano. Cardiovascular: Regular rhythm and rate without murmur or S3. Output: Urine output is 1500 mL. ASSESSMENT AND PLAN: 1. Diabetic foot ulcer on the heel. It has been debrided. There may be more debridement planned. Continue present treatment. Continue present antibiotics. Concern is that the infection did go down to the bone. 2. Diabetes mellitus, type 2. Sugar is under good control. 3. Nutrition is good. Good p.o. intake. He is requesting some Tums, so we will let him have some p.r.n.. cc: Jean Quick MD
[2018-11-19] MEDS: TUMS PO PRN (13:56)
[2018-11-19] MEDS: VANCOMYCIN 1,800 MG in NS 500 ML IV SCH (13:57)
--- NOTE | 2018-11-19 16:58 | PROGRESS NOTE ---
DATE: 11/19/2018 I took down the dressing on Mr. Dubon's left heel. It is clean. There is some granulation tissue. I redressed the wound. Dr. Hay will return tomorrow. cc: Neela Rudd MD
[2018-11-20] MEDS: NS 1,000 ML IV SCH ×3 (02:51→18:01)
[2018-11-20] MEDS: ZOSYN 2.25 GM in NS 50 ML IV SCH ×2 (04:29→15:11)
[2018-11-20] MEDS: HUMALOG SUBQ SCH ×4 (06:31→22:00)
[2018-11-20] MEDS: PERIDEX MT SCH ×2 (10:37→22:00)
[2018-11-20] MEDS: TUMS PO PRN (10:37)
--- NOTE | 2018-11-20 16:58 | PROGRESS NOTE ---
DATE: 11/20/2018 SUBJECTIVE: Mr. Dubon feels good, breathing comfortably. OBJECTIVE: Vital Signs: Remains afebrile 97.6 degrees, pulse 75, respirations 14, blood pressure 148/54. HEENT: Pupils are equal round. Lungs: Clear in all lung casiano. Cardiovascular: Regular rhythm and rate without murmur or S3. Abdomen: Soft. Skin: Warm and dry. His wounds look dry and clean. LABORATORY DATA: Urine output was 1400 mL. Blood sugar 188, 106, 158. ASSESSMENT AND PLAN: 1. Left heel. Glean some granulation. Re-dress the wound. Dr. Hay to return tomorrow. I think he may be able to go back to [facility] tomorrow. I will get things ready for that. 2. Diabetes mellitus type 2. Sugars been under good control. 3. Nutrition looks good, so I will get him ready to for discharge tomorrow. I think the question is how long do we need antibiotics. Culture from the left foot revealed E coli with extended-spectrum beta lactamase, and his urine culture, wound culture grew Proteus mirabilis and E coli, so I will get Dr. Sawant involved as far as what is our plan for antibiotics. It looks like he would do well to be on cefepime. cc: Jean Quick MD
--- NOTE | 2018-11-20 18:18 | INFECTIOUS DISEASE CONSULT REP ---
DATE: 11/20/2018 CONCLUSION: The patient is status post status post debridement of an extended spectrum beta lactamase producing E coli and Proteus infection which involve the calcaneus. The bone was debrided by Dr. Hay. RECOMMENDATIONS: I have discontinued vancomycin and Zosyn and have placed the patient on ertapenem. I have ordered a CBC and BMP for tomorrow morning. I have requested that a PICC be placed and ordered a pro time. I plan on treating the patient for 6 weeks with IV ertapenem. DISCUSSION: The patient tells me for the past 3 to 5 months he has had an infection in his left heel. He underwent debridement of the heel and in Dr. Hay's operation note he said that the infection went down to the calcaneus and he debrided the calcaneus. PAST MEDICAL HISTORY/REVIEW OF SYSTEMS: Eyes and ears: The patient denies trouble hearing or seeing. Neck: No stiffness. Respiratory: No cough or shortness of breath. GI: No nausea, vomiting or diarrhea. : No dysuria or flank pain. Bones, joints, muscles: See present illness. Neurologic: The patient is unable to walk. Integument: No rash. PREVIOUS HOSPITALIZATIONS AND OPERATIONS: He has had surgery for colon cancer and prostate cancer. MEDICAL DISEASES: Positive for colon cancer and prostate cancer. Also positive for diabetes mellitus and hypertension. INFECTIOUS DISEASE HISTORY: Negative for pneumonia and UTI. FAMILY HISTORY: Positive for diabetes mellitus and cancer. SOCIAL HISTORY: The patient lives in a long term with his . He is allergic to sulfa. He does not smoke cigarettes, drink alcoholic beverages or abuse drugs. His chart lists that he is allergic to sulfa and meperidine. HOME MEDICATIONS: Include Norvasc, Coreg, omeprazole, and various vitamins and minerals. PHYSICAL EXAMINATION: Vital Signs: The patient's temperature is 97.6 degrees, pulse 75, respirations 14, blood pressure 148/54. Patient weighs 232 pounds. He is 6 feet 1 inch tall. General: This is a fairly healthy-appearing, elderly male. He is in no acute distress. Head, eyes, ears, nose, and throat: He can hear my spoken words and see near objects. He does not have any drainage from his nose or ears. He does not have any white patches on his tongue. Neck: No meningismus. Lungs: Clear to auscultation. Cardiovascular: Regular heart rate. Abdomen: Soft and nontender. Extremities: The patient had a large dressing around his left foot. The dressing is intact. Neurologic: Patient is awake. He can move his extremities. There is no tremor. Integument: No rash. Thank you for the consult. cc: Sahil Sawant MD MTDD
--- NOTE | 2018-11-20 18:28 | GENERAL SURGERY PROGRESS NOTE ---
DATE: 11/20/2018 SUBJECTIVE: He has been okay. Dressing changes are going alright. OBJECTIVE: No fever. No tachycardia. I reviewed his labs. Glucoses are better. ASSESSMENT AND PLAN: A 78-year-old gentleman with a large ulceration on the left calcaneus. We will continue local wound care, Vashe twice daily wet-to-dry dressings. I have ordered this. He is on antibiotics. His bone cultures from surgery have grown Escherichia coli. Grim prognosis for his foot, but we will monitor for now. I have discussed with the patient and family. cc: Abelino Hay MD
[2018-11-20] MEDS: INVANZ 1 GM/NS 1 GM/50 ML IVPB IV SCH (19:02)
[2018-11-21] MEDS: HUMALOG SUBQ SCH ×4 (06:21→22:03)
[2018-11-21 06:23] LABS: INR 1.04; PROTIME 14.4 Seconds (11.0-16.0)
[2018-11-21 06:24] LABS: BASO# 0.04 X1000 (0.0-0.2); BASO% 0.6 % (0.0-0.8); EOS# 0.11 X1000 (0.0-0.7); EOS% 1.6 % (0.0-10.0); HEMATOCRIT 26.7 % (42.0-52.0); HEMOGLOBIN 8.4 g/dL (14.0-18.0); IMM GRAN# 0.04 X1000 (0.0-0.04); IMM GRAN% 0.6 % (0.0-0.5); LYMPH# 1.56 X1000 (1.2-3.4); LYMPH% 22.2 % (20.5-51.1); MCH 30.5 PG (27-31); MCHC 31.5 g/dL (33-37); MCV 97.1 FL (81-99); MONO# 0.71 X1000 (0.11-0.59); MONO% 10.1 % (1.7-9.3); MPV 9.6 FL (7.4-10.4); NEUT# 4.57 X1000 (1.4-6.5); NEUT% 64.9 % (42.2-75.2); PLT 367 X1000 (130-400); RBC 2.75 XMIL (4.7-6.1); RDW 14.8 % (11.5-14.5); WBC 7.03 X1000 (4.8-10.8)
[2018-11-21 06:42] LABS: CALCIUM 8.5 mg/dL (8.8-10.2); CREATININE 2.1 mg/dL (0.7-1.2); POTASSIUM 4.2 mmol/L (3.5-5.1)
[2018-11-21] MEDS ORDERED: NS 250 ML ONE (09:24)
[2018-11-21] MEDS: PERIDEX MT SCH ×2 (09:31→22:05)
[2018-11-21] MEDS: TUMS PO PRN ×2 (10:58→18:17)
[2018-11-21] MEDS: COREG PO SCH (12:27)
--- NOTE | 2018-11-21 15:00 | PROGRESS NOTE ---
DATE: 11/21/2018 INTERVAL HISTORY: Pain well-controlled. No acute events overnight. No new complaints. REVIEW OF SYSTEMS: Twelve point review of systems negative except as per interval history. LABORATORY DATA: WBC 7, hemoglobin 8.4, hematocrit 26.7, platelet 367,000. INR 1.04. BUN 28, creatinine 2.1, glucose 103. Basic metabolic panel otherwise unremarkable. VITAL SIGNS: T-max 99.0, pulse is 68, respirations 18, blood pressure 142/67, O2 saturation 98 percent on room air. PHYSICAL EXAMINATION: General: No acute distress. Vitals: As above. HEENT: Normocephalic, atraumatic. Moist mucous membranes. No cervical adenopathy. Cardiovascular: Regular rate and rhythm. No murmurs noted. Pulmonary: Clear to auscultation bilaterally. No wheezing, rales, or rhonchi. Abdomen: Soft, nontender, nondistended. Bowel sounds positive. Extremities: Peripheral pulses intact. Left foot heavily bandaged. Bandaging clean, dry, and intact. Right foot with anterior amputation. Peripheral pulses decreased but intact. No clubbing, cyanosis, or edema. No other limb deformities noted. Neurologic: Cranial nerves grossly intact. Decreased sensation distally. Otherwise, no focal deficits. Psychiatric: Normal mood and affect. Awake, alert, and oriented x3. Skin: No new rashes or lesions identified. ASSESSMENT AND PLAN: 1. Left heel osteomyelitis, status post debridement by Dr. Hay. Awaiting final surgery recommendations regarding weightbearing and dressing changes. Infectious disease is on board and plans to place patient on ertapenem for 6 weeks, given extended spectrum beta lactamase producing Escherichia coli and Proteus growing out from his operative cultures. Obtaining peripherally inserted central catheter line and may be able to discharge to rehab once all this is set up. The patient is a high risk for complications, further infection, but doing well so far. 2. Diabetes mellitus. Good control of sugars currently. Continue current management. 3. Chronic kidney disease 3. Creatinine stable. 4. Gastroesophageal reflux disease. Continue proton pump inhibitor . 5. Hypertension. Some mild elevations here. We will restart the patient's home Norvasc and monitor. 6. Diabetic peripheral neuropathy. Continue gabapentin. 7. Disposition. Plan on discharge likely to [facility] once peripherally inserted central catheter line is obtained, intravenous antibiotics are arranged, or final surgical recommendations are obtained.
--- NOTE | 2018-11-21 16:58 | INFECTIOUS DISEASE PROGRESS NO ---
DATE: 11/21/2018 PRESENT ILLNESS: The patient has an extended spectrum beta lactamase producing E. coli and proteus infection involving the patient's left foot. The patient also has an extended spectrum beta lactamase producing E coli urinary tract infection. MEDICATIONS: The patient is receiving ertapenem in a dose of 1 g IV daily. PHYSICAL EXAMINATION: Vital Signs: Temperature is 98.4 degrees, pulse 72, respirations 14, blood pressure 152/61. General: This is an obese, but otherwise healthy-appearing elderly male. He is in no acute distress. Head, eyes, ears, nose, and throat: He can hear my spoken words and see near objects. He does not have any white coating of his tongue. Neck: No pain with movement. Lungs: Clear to auscultation. Cardiovascular: Heart rate is regular. Abdomen: Soft and nontender. Extremities: The patient has a large dressing around the left foot. The dressing is intact. Neurologic: Patient is alert. He can move his extremities. There is no tremor. Integument: No rash. LAB AND X-RAY: The patient's CBC today shows a white count of 7030, hemoglobin 8.4, and platelet count 367,000. Creatinine is 2.1. GFR is 31. ASSESSMENT AND PLAN: Patient has an extended spectrum beta lactamase producing Escherichia coli and Proteus osteomyelitis of the calcaneus, as well as an extended spectrum beta lactamase producing Escherichia coli urinary tract infection. My plan is to treat the patient for 6 weeks with intravenous ertapenem. COMORBIDITIES: The patient is elderly and he has diabetes mellitus. cc: Sahil Sawant MD MTDD
[2018-11-21] MEDS: INVANZ 1 GM/NS 1 GM/50 ML IVPB IV SCH (18:10)
[2018-11-21] MEDS: NS 1,000 ML IV SCH ×2 (18:17)
[2018-11-22] MEDS: COREG PO SCH ×3 (00:37→22:45)
[2018-11-22] MEDS: PERIDEX MT SCH ×2 (09:56→21:36)
[2018-11-22] MEDS: NS 1,000 ML IV SCH ×2 (09:56→18:31)
[2018-11-22] MEDS: HUMALOG SUBQ SCH ×4 (09:57→21:35)
[2018-11-22] MEDS: TUMS PO PRN ×2 (12:00→15:57)
--- NOTE | 2018-11-22 14:29 | PROGRESS NOTE ---
DATE: 11/22/2018 INTERVAL HISTORY: No acute events overnight. No new complaints aside from his PICC bandage being down to the bend of his arm, limiting his mobility, which was addressed. Pain well controlled. REVIEW OF SYSTEMS: Twelve point review of systems negative except as per interval history. LABS: Glucose 108-170. VITAL SIGNS: T-max 99.8 degrees, pulse 71, respirations 16, blood pressure 149/53, O2 saturation 97% on room air. PHYSICAL EXAMINATION: General: No acute distress. Vital signs: As above. HEENT: Normocephalic, atraumatic. Moist mucous membranes. No cervical adenopathy. Cardiovascular: Regular rate and rhythm. No murmurs noted. Pulmonary: Clear to auscultation bilaterally. No wheezing, rales, or rhonchi. Abdomen: Soft, nontender, nondistended. Bowel sounds positive. Extremities: Peripheral pulses intact. Left foot remains heavily bandaged. Bandage clean, dry, intact. Right foot with well-healed anterior amputation stable. Peripheral pulses decreased but intact. No clubbing, cyanosis, or edema. No other limb deformities. Neurologic: Cranial nerves grossly intact. No new focal deficits. Psychiatric: Normal mood and affect. Awake, alert, oriented x3. Skin: No new rashes or lesions identified. ASSESSMENT AND PLAN: 1. Left heel osteomyelitis: The patient is status post debridement including bone by Dr. Hay. Awaiting final surgical recommendations regarding weightbearing and dressing changes. ID on board and plans to continue ertapenem for 6 weeks given ESBL producing E. coli and Proteus growing from his cultures. PICC line in place and placement to rehab pending. 2. Diabetes mellitus. Good control currently. Continue current management. 3. Chronic kidney disease 3. Creatinine stable on last check. Continue to monitor. 4. Gastroesophageal reflux disease. Continue PPI. 5. Hypertension. Occasional mild elevations, but overall acceptable control since restarting patient's home Norvasc. Continue to monitor. 6. Diabetic peripheral neuropathy. Continue gabapentin. 7. Disposition. Plan to discharge, preferably to [facility] once arrangements are made. If [facility] is not able to take him on seek alternate, but patient was strongly prefer [facility] as that is where his is.
[2018-11-22] MEDS: INVANZ 1 GM/NS 1 GM/50 ML IVPB IV SCH (17:44)
--- NOTE | 2018-11-22 18:55 | GENERAL SURGERY PROGRESS NOTE ---
DATE: 11/22/2018 SUBJECTIVE: Doing well. Dressing changes going fine. He is awaiting placement back in rehab, but Dr. Sawant plans for 6 weeks of antibiotics. No fevers. No tachycardia. OBJECTIVE: Blood pressure 146/64. I reviewed his labs. White count is normal. Creatinine is at baseline. Glucose is improved. ASSESSMENT AND PLAN: A 78-year-old gentleman with necrotic wound to his left heel, exposed calcaneus. It has been debrided. He is on antibiotics. We will follow him as an outpatient. He needs to be strict nonweightbearing, left lower extremity. I think the prognosis of his foot is grim, but hopefully we can establish some granulation tissue here and allow healing, but this will be tough. Disposition per the Medicine service. We will follow along. cc: Abelino Hay MD
[2018-11-23] MEDS: HUMALOG SUBQ SCH ×2 (06:39→10:49)
[2018-11-23 06:42] LABS: BASO# 0.04 X1000 (0.0-0.2); BASO% 0.5 % (0.0-0.8); EOS# 0.15 X1000 (0.0-0.7); EOS% 2.1 % (0.0-10.0); HEMATOCRIT 27.4 % (42.0-52.0); HEMOGLOBIN 8.5 g/dL (14.0-18.0); IMM GRAN# 0.05 X1000 (0.0-0.04); IMM GRAN% 0.7 % (0.0-0.5); LYMPH# 1.77 X1000 (1.2-3.4); LYMPH% 24.3 % (20.5-51.1); MCH 30.2 PG (27-31); MCV 97.5 FL (81-99); MONO# 0.76 X1000 (0.11-0.59); MONO% 10.4 % (1.7-9.3); MPV 9.9 FL (7.4-10.4); NEUT# 4.51 X1000 (1.4-6.5); PLT 320 X1000 (130-400); RBC 2.81 XMIL (4.7-6.1); RDW 14.9 % (11.5-14.5); WBC 7.28 X1000 (4.8-10.8)
[2018-11-23 06:56] LABS: CREATININE 2.1 mg/dL (0.7-1.2); POTASSIUM 4.8 mmol/L (3.5-5.1)
[2018-11-23] MEDS: NS 1,000 ML IV SCH (09:38)
[2018-11-23] MEDS: PERIDEX MT SCH (09:38)
--- NOTE | 2018-11-23 10:36 | INFECTIOUS DISEASE PROGRESS NO ---
DATE: 11/23/2018 The patient has an extended spectrum beta lactamase producing E- coli and Proteus osteomyelitis of the left calcaneus. The patient is being treated with ertapenem intravenously. I have ordered the following orders. The patient is going back to the residential he lives in with his . The following orders are ertapenem 1 gram IV daily x40 days. CBC with differential and creatinine every Tuesday x40 days and removal of the PICC after the last dose of ertapenem. The will be followed as an outpatient by Dr. Johnny Hay. I am available to see the patient on a prn basis. cc: Sahil Sawant MD MTDD
[2018-11-23] MEDS: COREG PO SCH (11:08)
--- NOTE | 2018-11-23 11:46 | DISCHARGE SUMMARY ---
ADMISSION DATE: 11/15/2018 DISCHARGE DATE: 11/23/2018 ADMISSION DIAGNOSIS: 1. Left heel diabetic foot ulcer. 2. Type 2 diabetes. 3. Hypertension. 4. Chronic kidney disease. 5. Gastroesophageal reflux disease. 6. Severe peripheral vascular disease. DISCHARGE DIAGNOSIS: 1. Left heel osteomyelitis with extended-spectrum beta-lactamase positive Escherichia coli wound infection. 2. Type 2 diabetes. 3. Hypertension. 4. Chronic kidney disease. 5. Gastroesophageal reflux disease. 6. Severe peripheral vascular disease. CONSULTATIONS: Abelino Hay MD with Surgery. Sahil Sawant MD with ID. DIAGNOSTIC PROCEDURES AND FINDINGS: Chest x-ray 11/15/2018: Right middle lobe atelectasis. EKG 11/15/2018: Normal sinus rhythm, no acute ST or T abnormalities. OPERATIVE PROCEDURES: Excisional debridement down to and including the level of the calcaneus bone by Dr. Johnny Hay on 11/16/2018. HOSPITAL COURSE: Mr. Dubon is a 78-year-old male, who is followed by Dr. Caio Kwan, who was admitted with left foot diabetic foot ulcer. He has a history of diabetes and severe peripheral vascular disease and has already had toe amputations on the right foot previously. He is followed by Dr. Hay outpatient and has had debridements in the office on the left foot but it was felt he would need a full scale debridement in the OR so he was admitted to our service. Initially, we obtained blood and wound cultures and on 11/16 the patient went to the OR with Dr. Hay for debridement. His wound culture ultimately grew back ESBL positive E. coli and he was changed from vancomycin and Zosyn to Invanz and we consulted Dr. Sawant. His surgical procedure was without incident and his recovery has been going well. We adjusted some of his antihypertensives and kept good control of his diabetes. He has reached maximum benefit from inpatient hospitalization and is now stable for discharge to [facility]. DISCHARGE MEDICATIONS: 1. Aspirin 325 mg daily. 2. Norvasc 5 mg daily. 3. Zinc sulfate 220 mg p.o. b.i.d. 4. Liquid Protein Fortifier 30 mL b.i.d. 5. Hong packet 1 p.o. b.i.d. 6. Vitamin C 500 mg p.o. b.i.d. 7. Prilosec 40 mg daily. 8. Coreg 6.25 mg p.o. b.i.d. 9. Multivitamin 1 daily. 10.Vitamin B12 1000 mcg daily. 11.Calmoseptine ointment topically b.i.d. 12.Vitamin D3 2000 units p.o. daily. 13.Neutra-Phos 1 p.o. 4 times a day. 14.Sodium bicarbonate 650 mg p.o. b.i.d. 15.Culturelle 1 p.o. b.i.d. 16.Invanz 1 g IV piggyback 1 g daily, and this will be managed by Dr. Sawant. DISCHARGE ACTIVITY: Resume activity as tolerated. DISCHARGE DIET: Diabetic. DISCHARGE LAB DATA: WBC 7.28, hemoglobin 8.5, hematocrit 27.4, platelet count 320. Sodium 140, potassium 4.8, chloride 112, CO2 17, anion gap 11, BUN 32, creatinine 2.1, glucose 119, calcium 9. DISPOSITION AND OTHER DISCHARGE INSTRUCTIONS: He is to follow up with Dr. Hay and Dr. Sawant as directed. He is to continue medical care under the direction of [facility] and continue all medications as directed. He is to return to the ER or call 911 for worsening complaints or concerns. All questions answered. DISCHARGE TIME: Greater than 35 minutes. Dictated by MOI Patiño for Papi Kang MD cc: MOI Patiño MD Leroy F. Harris, MD Agree with above. The following is my own face to face assessment. Patient doing well post-op. working with PT. left foot remains bandaged and bandages clean/dry/intact on exam. Going to SNF for further PT and to continue a total of 6 weeks of IV antibiotics. MTDD
[2018-11-23 11:47] VITALS: BP 172/62
== END 2018-11-23 14:54 | DRG 629 ==
LOC: DIRADM 10:16 → SUATTDRO 10:16 → 4N 10:22
PROVIDERS: ATTEND Internal Medicine
CPT/HCPCS: 36569; 71010; 71045; 80048; 80053; 81001; 82607; 82746; 82948; 83735; 84439; 84443; 85025; 85610; 85730; 87040; 87070; 87075; 87077; 87088; 87186; 87205; 88304; 93005; 93010; 94761; 94799; A9270; J1335; J1815; J2543; J3370; J7030; J7040; J7050; XXXXX

== ENCOUNTER 2019-06-12 11:02 | Inpatient (IN) ==
[2019-06-12 12:32] LABS: BASO# 0.02 X1000 (0.0-0.2); BASO% 0.1 % (0.0-0.8); EOS# 0.06 X1000 (0.0-0.7); EOS% 0.4 % (0.0-10.0); HEMATOCRIT 27.7 % (42.0-52.0); HEMOGLOBIN 8.4 g/dL (14.0-18.0); IMM GRAN# 0.18 X1000 (0.0-0.04); IMM GRAN% 1.3 % (0.0-0.5); LYMPH# 2.61 X1000 (1.2-3.4); LYMPH% 18.7 % (20.5-51.1); MCH 29.6 PG (27-31); MCHC 30.3 g/dL (33-37); MCV 97.5 FL (81-99); MONO# 1.33 X1000 (0.11-0.59); MONO% 9.5 % (1.7-9.3); MPV 9.1 FL (7.4-10.4); NEUT# 9.73 X1000 (1.4-6.5); PLT 352 X1000 (130-400); RBC 2.84 XMIL (4.7-6.1); RDW 15.6 % (11.5-14.5); WBC 13.93 X1000 (4.8-10.8)
[2019-06-12 12:48] LABS: ALB/GLOB RATIO 0.6; ALBUMIN 2.5 g/dL (3.5-5.0); POTASSIUM 3.7 mmol/L (3.5-5.1); TOTAL BILIRUBIN 0.19 mg/dL (0.20-1.00); TOTAL PROTEIN 6.8 g/dL (6.3-8.3)
[2019-06-12] MEDS ORDERED: MERREM 1 GM in NS 50 ML IV ONE (15:00)
[2019-06-12] MEDS ORDERED: ZYVOX PO ONE (15:00)
[2019-06-12] MEDS ORDERED: ZOFRAN IV PRN (15:08)
[2019-06-12 15:44] LABS: HEMOGLOBIN A1C 5.6 % (4.8-6.0)
[2019-06-12 15:53] LABS: IRON SATURATION 30 %; TIBC 99 ug/dL; TOTAL IRON 30 ug/dL (53-167); UNBOUND IRON 69 ug/dL (112-346)
[2019-06-12] MEDS: HUMULIN R SUBQ SCH ×2 (16:00→21:35)
[2019-06-12 16:08] LABS: FREE T4 0.79 ng/dL (0.93-1.70); TSH 3.85 uIUmL (0.27-4.20)
[2019-06-12] MEDS: HEPARIN SUBQ SCH (16:18)
[2019-06-12] MEDS: NS 1,000 ML IV SCH (16:19)
[2019-06-12 16:30] LABS: URINE SOURCE CLEAN CATCH
[2019-06-12 16:46] LABS: BILIRUBIN URINE NEGATIVE (NEGATIVE); BLOOD URINE MODERATE (NEGATIVE); COLOR ORANGE; GLUCOSE URINE NEGATIVE (NEGATIVE); KETONE URINE NEGATIVE (NEGATIVE); LEUKOCYTES URINE LARGE (NEGATIVE); NITRITE URINE NEGATIVE (NEGATIVE); PROTEIN URINE 100 mg/dL (NEGATIVE); SP GRAVITY URINE 1.007; TURBIDITY URINE TURBID (CLEAR); UROBILINOGEN URINE NORMAL (NORMAL)
[2019-06-12 16:56] LABS: FERRITIN 2380 ng/mL (30-400)
[2019-06-12 17:00] LABS: UR EPITHELIAL CELLS >10 /HPF (<10); URINE BACTERIA 4+ /HPF; URINE RBC 20-40 /HPF (<10); URINE WBC TNTC /HPF (<10)
[2019-06-12 17:10] LABS: URINE CASTS NONE SEEN; URINE CRYSTALS NONE SEEN; URINE YEAST NONE SEEN
[2019-06-12 17:27] LABS: ALLEN TEST YES; BLOOD TYPE ARTERIAL; HCO3-(ACT) 13.9 mmoll (20.0-26.0); PCO2(98.6) 24 mmHg (35-45); PO2(98.6) 82 mmHg (60-100); SAMPLE BLOOD; pH(98.6) 7.27 (7.35-7.45)
[2019-06-12] MEDS ORDERED: SODIUM BICARBONATE PO SCH (17:45)
[2019-06-12] MEDS: DUONEB (A & A) INH SCH ×2 (18:01→22:45)
[2019-06-12] MEDS: SODIUM BICARBONATE PO SCH ×2 (19:30→21:38)
[2019-06-12] MEDS ORDERED: PATIENT'S OWN MED PO SCH (21:00)
[2019-06-12] MEDS ORDERED: TRESIBA FLEXTOUCH U-100 SUBQ SCH (21:00)
[2019-06-12] MEDS ORDERED: NON-FORMULARY MED (Protein Hydrolysate,Milk [Liquid Protein Fortifier] 30 ML) PO SCH (21:00)
[2019-06-12] MEDS: COREG PO SCH (21:37)
[2019-06-12] MEDS: VITAMIN C PO SCH (21:37)
[2019-06-12] MEDS: ZINC SULFATE PO SCH (21:37)
[2019-06-12] MEDS: TUMS PO SCH (21:37)
[2019-06-12] MEDS: CULTURELLE PO SCH (21:37)
[2019-06-13] MEDS: HEPARIN SUBQ SCH ×2 (02:47→15:58)
[2019-06-13] MEDS: MERREM 1 GM in NS 50 ML IV SCH ×2 (03:02→15:57)
[2019-06-13] MEDS: ZYVOX PO SCH ×2 (03:02→15:58)
[2019-06-13] MEDS: DUONEB (A & A) INH SCH ×3 (03:39→16:09)
[2019-06-13] MEDS: HUMULIN R SUBQ SCH ×3 (06:01→16:05)
[2019-06-13] MEDS: PRILOSEC PO SCH (06:01)
[2019-06-13] MEDS: NS 1,000 ML IV SCH ×2 (06:02→18:49)
[2019-06-13 07:28] LABS: BASO# 0.02 X1000 (0.0-0.2); BASO% 0.1 % (0.0-0.8); EOS# 0.07 X1000 (0.0-0.7); EOS% 0.5 % (0.0-10.0); HEMATOCRIT 28.9 % (42.0-52.0); HEMOGLOBIN 8.6 g/dL (14.0-18.0); IMM GRAN# 0.24 X1000 (0.0-0.04); IMM GRAN% 1.7 % (0.0-0.5); MCH 29.4 PG (27-31); MCHC 29.8 g/dL (33-37); MCV 98.6 FL (81-99); MONO# 1.53 X1000 (0.11-0.59); MONO% 10.6 % (1.7-9.3); MPV 9.4 FL (7.4-10.4); NEUT# 10.26 X1000 (1.4-6.5); NEUT% 71.1 % (42.2-75.2); PLT 369 X1000 (130-400); RBC 2.93 XMIL (4.7-6.1); RDW 15.9 % (11.5-14.5); WBC 14.42 X1000 (4.8-10.8)
[2019-06-13 07:31] LABS: INR 1.23; PROTIME 15.7 Seconds (11.0-16.0); PTT 34.1 Seconds (22.3-41.8)
[2019-06-13 07:42] LABS: ALB/GLOB RATIO 0.6; ALBUMIN 2.5 g/dL (3.5-5.0); CALCIUM 7.3 mg/dL (8.8-10.2); CREATININE 4.4 mg/dL (0.7-1.2); MAGNESIUM 1.7 mg/dL (1.5-2.7); POTASSIUM 4.1 mmol/L (3.5-5.1); TOTAL BILIRUBIN 0.21 mg/dL (0.20-1.00); TOTAL PROTEIN 6.9 g/dL (6.3-8.3)
[2019-06-13] MEDS: TUMS PO SCH ×3 (08:33→18:49)
[2019-06-13] MEDS: CULTURELLE PO SCH ×2 (08:33→22:16)
[2019-06-13] MEDS: VITAMIN B-12 PO SCH (08:33)
[2019-06-13] MEDS: ZINC SULFATE PO SCH ×2 (08:33→22:16)
[2019-06-13] MEDS: SODIUM BICARBONATE PO SCH ×2 (08:33→22:16)
[2019-06-13] MEDS: COREG PO SCH (08:33)
[2019-06-13] MEDS: VITAMIN C PO SCH ×2 (08:34→22:16)
[2019-06-13] MEDS: ASPIRIN EC PO SCH (08:34)
[2019-06-13] MEDS: CENTRUM SILVER PO SCH (08:34)
[2019-06-13] MEDS ORDERED: LEXAPRO PO SCH (09:00)
[2019-06-13] MEDS ORDERED: NORVASC PO SCH (09:00)
[2019-06-13] MEDS ORDERED: VITAMIN D PO SCH (09:00)
[2019-06-13] MEDS: VITAMIN D PO SCH (15:58)
[2019-06-13 17:45] LABS: URINE SOURCE CATH
[2019-06-13 17:49] LABS: BILIRUBIN URINE NEGATIVE (NEGATIVE); BLOOD URINE MODERATE (NEGATIVE); COLOR ORANGE; GLUCOSE URINE 100 mg/dL (NEGATIVE); KETONE URINE NEGATIVE (NEGATIVE); LEUKOCYTES URINE LARGE (NEGATIVE); NITRITE URINE NEGATIVE (NEGATIVE); PROTEIN URINE 200 mg/dL (NEGATIVE); SP GRAVITY URINE 1.008; TURBIDITY URINE TURBID (CLEAR); UROBILINOGEN URINE NORMAL (NORMAL)
[2019-06-13 18:16] LABS: UR PROT RANDOM 171.4 mg/dL
[2019-06-13 18:18] LABS: UR CREAT RANDOM 20.2 mg/dL (14-26)
[2019-06-13 18:23] LABS: UR EPITHELIAL CELLS >10 /HPF (<10); URINE BACTERIA 4+ /HPF; URINE RBC TNTC /HPF (<10); URINE WBC TNTC /HPF (<10)
[2019-06-13 18:26] LABS: URINE CASTS GRANULAR PRESENT; URINE CRYSTALS NONE SEEN; URINE YEAST PRESENT
[2019-06-13] MEDS: TRESIBA FLEXTOUCH U-100 SUBQ SCH (22:15)
[2019-06-13] MEDS: HUMALOG SUBQ SCH ×2 (22:15→22:16)
[2019-06-14] MEDS: DUONEB (A & A) INH SCH ×2 (00:41→03:26)
[2019-06-14] MEDS: HEPARIN SUBQ SCH ×2 (03:30→15:57)
[2019-06-14] MEDS: MERREM 1 GM in NS 50 ML IV SCH (04:41)
[2019-06-14] MEDS: ZYVOX PO SCH ×2 (04:42→15:58)
[2019-06-14] MEDS: PRILOSEC PO SCH (06:16)
[2019-06-14] MEDS: HUMALOG SUBQ SCH ×8 (06:17→23:36)
[2019-06-14 08:30] LABS: BASO# 0.03 X1000 (0.0-0.2); BASO% 0.2 % (0.0-0.8); EOS# 0.09 X1000 (0.0-0.7); EOS% 0.7 % (0.0-10.0); HEMATOCRIT 27.8 % (42.0-52.0); HEMOGLOBIN 8.3 g/dL (14.0-18.0); IMM GRAN# 0.33 X1000 (0.0-0.04); IMM GRAN% 2.6 % (0.0-0.5); LYMPH# 2.33 X1000 (1.2-3.4); LYMPH% 18.2 % (20.5-51.1); MCH 29.5 PG (27-31); MCHC 29.9 g/dL (33-37); MCV 98.9 FL (81-99); MONO# 1.18 X1000 (0.11-0.59); MONO% 9.2 % (1.7-9.3); MPV 9.6 FL (7.4-10.4); NEUT# 8.86 X1000 (1.4-6.5); NEUT% 69.1 % (42.2-75.2); PLT 385 X1000 (130-400); RBC 2.81 XMIL (4.7-6.1); RDW 16.1 % (11.5-14.5); WBC 12.82 X1000 (4.8-10.8)
[2019-06-14] MEDS: VITAMIN D PO SCH (08:36)
[2019-06-14] MEDS ORDERED: DUONEB (A & A) INH PRN (08:36)
[2019-06-14] MEDS: ASPIRIN EC PO SCH (08:37)
[2019-06-14] MEDS: TUMS PO SCH ×3 (08:37→16:07)
[2019-06-14] MEDS: SODIUM BICARBONATE PO SCH (08:37)
[2019-06-14] MEDS: VITAMIN B-12 PO SCH (08:37)
[2019-06-14] MEDS: VITAMIN C PO SCH ×2 (08:37→22:28)
[2019-06-14] MEDS: ZINC SULFATE PO SCH ×2 (08:37→22:28)
[2019-06-14] MEDS: CULTURELLE PO SCH ×2 (08:37→22:28)
[2019-06-14] MEDS: CENTRUM SILVER PO SCH (08:37)
[2019-06-14 08:53] LABS: AGAP 20; ALB/GLOB RATIO 0.6; ALBUMIN 2.4 g/dL (3.5-5.0); ALKALINE PHOSPHATASE 85 U/L (32-122); BUN 76 mg/dL (8-22); CHLORIDE 110 mmol/L (98-107); COSMO 306; CREATININE 4.3 mg/dL (0.7-1.2); ESTIMATED GFR 13; GLUCOSE 165 mg/dL (70-104); GOT 9 U/L (10-34); GPT 8 U/L (10-44); MAGNESIUM 1.7 mg/dL (1.5-2.7); POTASSIUM 4.1 mmol/L (3.5-5.1); SODIUM 140 mmol/L (136-145); TCO2 10 mmol/L (25-35); TOTAL BILIRUBIN < 0.15 mg/dL (0.20-1.00); TOTAL PROTEIN 6.1 g/dL (6.3-8.3)
[2019-06-14 09:04] LABS: CALCIUM 6.7 mg/dL (8.8-10.2)
[2019-06-14] MEDS ORDERED: CALCIUM GLUCONATE 4.65 MEQ in NS 50 ML IV ONE (10:00)
[2019-06-14] MEDS: SODIUM BICARBONATE 8.4% 150 MEQ in D5W 1,000 ML IV SCH ×2 (10:00→22:26)
[2019-06-14] MEDS: ZOSYN 2.25 GM in NS 50 ML IV SCH ×2 (16:03→22:26)
[2019-06-14] MEDS: TRESIBA FLEXTOUCH U-100 SUBQ SCH (22:27)
[2019-06-15] MEDS: ZOSYN 2.25 GM in NS 50 ML IV SCH ×4 (03:46→22:08)
[2019-06-15] MEDS: HEPARIN SUBQ SCH ×2 (03:47→15:38)
[2019-06-15] MEDS: ZYVOX PO SCH ×2 (04:42→15:39)
[2019-06-15] MEDS: HUMALOG SUBQ SCH ×8 (06:24→22:10)
[2019-06-15] MEDS: PRILOSEC PO SCH (06:24)
[2019-06-15 07:30] LABS: BASO# 0.03 X1000 (0.0-0.2); BASO% 0.3 % (0.0-0.8); EOS# 0.15 X1000 (0.0-0.7); EOS% 1.5 % (0.0-10.0); HEMATOCRIT 27.3 % (42.0-52.0); HEMOGLOBIN 8.2 g/dL (14.0-18.0); IMM GRAN# 0.21 X1000 (0.0-0.04); IMM GRAN% 2.1 % (0.0-0.5); LYMPH# 2.28 X1000 (1.2-3.4); LYMPH% 22.3 % (20.5-51.1); MCH 29.4 PG (27-31); MCV 97.8 FL (81-99); MONO# 0.93 X1000 (0.11-0.59); MONO% 9.1 % (1.7-9.3); MPV 9.3 FL (7.4-10.4); NEUT# 6.62 X1000 (1.4-6.5); NEUT% 64.7 % (42.2-75.2); PLT 371 X1000 (130-400); RBC 2.79 XMIL (4.7-6.1); RDW 15.7 % (11.5-14.5); WBC 10.22 X1000 (4.8-10.8)
[2019-06-15 08:09] LABS: ALB/GLOB RATIO 0.4; CREATININE 3.7 mg/dL (0.7-1.2); MAGNESIUM 1.5 mg/dL (1.5-2.7); POTASSIUM 3.9 mmol/L (3.5-5.1); TOTAL BILIRUBIN 0.16 mg/dL (0.20-1.00); TOTAL PROTEIN 6.6 g/dL (6.3-8.3)
[2019-06-15 08:12] LABS: CALCIUM 6.7 mg/dL (8.8-10.2)
[2019-06-15] MEDS: ASPIRIN EC PO SCH (08:23)
[2019-06-15] MEDS: ZINC SULFATE PO SCH ×2 (08:24→22:11)
[2019-06-15] MEDS: CULTURELLE PO SCH ×2 (08:24→22:11)
[2019-06-15] MEDS: VITAMIN D PO SCH (08:24)
[2019-06-15] MEDS: VITAMIN C PO SCH ×2 (08:24→22:11)
[2019-06-15] MEDS: VITAMIN B-12 PO SCH (08:24)
[2019-06-15] MEDS: TUMS PO SCH ×3 (08:24→17:16)
[2019-06-15] MEDS: CENTRUM SILVER PO SCH (08:24)
[2019-06-15] MEDS: SODIUM BICARBONATE 8.4% 150 MEQ in D5W 1,000 ML IV SCH (08:38)
[2019-06-15] MEDS: TRESIBA FLEXTOUCH U-100 SUBQ SCH (22:10)
[2019-06-16] MEDS: SODIUM BICARBONATE 8.4% 150 MEQ in D5W 1,000 ML IV SCH ×2 (01:01→15:02)
[2019-06-16] MEDS: HEPARIN SUBQ SCH ×2 (04:00→16:56)
[2019-06-16] MEDS: ZYVOX PO SCH ×2 (04:34→16:59)
[2019-06-16] MEDS: ZOSYN 2.25 GM in NS 50 ML IV SCH ×2 (04:34→08:29)
[2019-06-16] MEDS: HUMALOG SUBQ SCH ×7 (06:14→21:58)
[2019-06-16] MEDS: PRILOSEC PO SCH (06:30)
[2019-06-16 06:34] LABS: BASO# 0.03 X1000 (0.0-0.2); BASO% 0.3 % (0.0-0.8); EOS# 0.16 X1000 (0.0-0.7); EOS% 1.4 % (0.0-10.0); HEMATOCRIT 28.5 % (42.0-52.0); HEMOGLOBIN 8.7 g/dL (14.0-18.0); IMM GRAN# 0.24 X1000 (0.0-0.04); IMM GRAN% 2.1 % (0.0-0.5); LYMPH# 2.43 X1000 (1.2-3.4); LYMPH% 21.1 % (20.5-51.1); MCH 29.3 PG (27-31); MCHC 30.5 g/dL (33-37); MONO# 1.04 X1000 (0.11-0.59); MONO% 9.1 % (1.7-9.3); MPV 9.3 FL (7.4-10.4); NEUT# 7.59 X1000 (1.4-6.5); PLT 380 X1000 (130-400); RBC 2.97 XMIL (4.7-6.1); RDW 15.6 % (11.5-14.5); WBC 11.49 X1000 (4.8-10.8)
[2019-06-16 07:04] LABS: ALB/GLOB RATIO 0.5; ALBUMIN 2.1 g/dL (3.5-5.0); CALCIUM 6.7 mg/dL (8.8-10.2); CREATININE 3.3 mg/dL (0.7-1.2); MAGNESIUM 1.5 mg/dL (1.5-2.7); POTASSIUM 3.2 mmol/L (3.5-5.1); TOTAL BILIRUBIN 0.22 mg/dL (0.20-1.00); TOTAL PROTEIN 6.7 g/dL (6.3-8.3)
[2019-06-16] MEDS: MAGNESIUM SULFATE 2 GM/S.W.I. 2 GM/50 ML IVPB IV SCH ×2 (08:18→12:08)
[2019-06-16] MEDS: KLOR-CON PO SCH ×2 (08:20→12:03)
[2019-06-16] MEDS: ASPIRIN EC PO SCH (08:20)
[2019-06-16] MEDS: TUMS PO SCH ×3 (08:20→16:57)
[2019-06-16] MEDS: VITAMIN D PO SCH (08:20)
[2019-06-16] MEDS: CENTRUM SILVER PO SCH (08:20)
[2019-06-16] MEDS: CULTURELLE PO SCH ×2 (08:20→21:59)
[2019-06-16] MEDS: VITAMIN C PO SCH ×2 (08:20→22:00)
[2019-06-16] MEDS: VITAMIN B-12 PO SCH (08:21)
[2019-06-16] MEDS: ZINC SULFATE PO SCH ×2 (08:21→21:59)
[2019-06-16] MEDS: MERREM 1 GM in NS 50 ML IV SCH ×2 (12:01→17:42)
[2019-06-16] MEDS: TRESIBA FLEXTOUCH U-100 SUBQ SCH (21:59)
[2019-06-17] MEDS: MERREM 1 GM in NS 50 ML IV SCH ×4 (01:41→17:55)
[2019-06-17] MEDS: SODIUM BICARBONATE 8.4% 150 MEQ in D5W 1,000 ML IV SCH ×2 (01:42→11:14)
[2019-06-17] MEDS: ZYVOX PO SCH ×2 (03:44→16:19)
[2019-06-17] MEDS: HEPARIN SUBQ SCH ×2 (03:45→14:28)
[2019-06-17] MEDS: HUMALOG SUBQ SCH ×7 (06:50→21:08)
[2019-06-17 06:51] LABS: CREATININE 3.5 mg/dL (0.7-1.2); MAGNESIUM 2.1 mg/dL (1.5-2.7); POTASSIUM 3.7 mmol/L (3.5-5.1)
[2019-06-17] MEDS: PRILOSEC PO SCH (06:51)
[2019-06-17 07:14] LABS: CALCIUM 6.3 mg/dL (8.8-10.2)
[2019-06-17] MEDS: ASPIRIN EC PO SCH (10:25)
[2019-06-17] MEDS: VITAMIN C PO SCH ×2 (10:25→21:07)
[2019-06-17] MEDS: CULTURELLE PO SCH ×2 (10:25→21:07)
[2019-06-17] MEDS: CENTRUM SILVER PO SCH (10:25)
[2019-06-17] MEDS: VITAMIN B-12 PO SCH (10:25)
[2019-06-17] MEDS: TUMS PO SCH ×3 (10:26→16:18)
[2019-06-17] MEDS: VITAMIN D PO SCH (10:26)
[2019-06-17] MEDS: ZINC SULFATE PO SCH ×2 (10:26→21:07)
[2019-06-17] MEDS: CALCIUM GLUCONATE 4.65 MEQ in NS 50 ML IV SCH ×2 (11:14→16:16)
[2019-06-17] MEDS: TYLENOL PO PRN (12:44)
[2019-06-17] MEDS: TRESIBA FLEXTOUCH U-100 SUBQ SCH (21:10)
[2019-06-18] MEDS: SODIUM BICARBONATE 8.4% 150 MEQ in D5W 1,000 ML IV SCH ×2 (00:04→01:10)
[2019-06-18] MEDS: MERREM 1 GM in NS 50 ML IV SCH ×5 (02:32→20:54)
[2019-06-18] MEDS: HUMALOG SUBQ SCH ×7 (06:05→20:55)
[2019-06-18] MEDS: PRILOSEC PO SCH (06:08)
[2019-06-18] MEDS: ZYVOX PO SCH (06:08)
[2019-06-18] MEDS: HEPARIN SUBQ SCH ×2 (06:08→18:24)
[2019-06-18 07:50] LABS: BASO# 0.03 X1000 (0.0-0.2); BASO% 0.3 % (0.0-0.8); EOS# 0.22 X1000 (0.0-0.7); EOS% 1.9 % (0.0-10.0); HEMATOCRIT 30.6 % (42.0-52.0); HEMOGLOBIN 8.9 g/dL (14.0-18.0); IMM GRAN# 0.11 X1000 (0.0-0.04); IMM GRAN% 0.9 % (0.0-0.5); LYMPH# 2.15 X1000 (1.2-3.4); LYMPH% 18.4 % (20.5-51.1); MCH 28.8 PG (27-31); MCHC 29.1 g/dL (33-37); MONO# 0.79 X1000 (0.11-0.59); MONO% 6.8 % (1.7-9.3); MPV 9.4 FL (7.4-10.4); NEUT% 71.7 % (42.2-75.2); PLT 381 X1000 (130-400); RBC 3.09 XMIL (4.7-6.1); RDW 15.3 % (11.5-14.5)
[2019-06-18 08:16] LABS: CREATININE 3.2 mg/dL (0.7-1.2); POTASSIUM 3.8 mmol/L (3.5-5.1)
[2019-06-18] MEDS: CULTURELLE PO SCH ×2 (09:07→20:54)
[2019-06-18] MEDS: VITAMIN B-12 PO SCH (09:08)
[2019-06-18] MEDS: ZINC SULFATE PO SCH ×2 (09:08→20:54)
[2019-06-18] MEDS: ASPIRIN EC PO SCH (09:08)
[2019-06-18] MEDS: VITAMIN D PO SCH (09:08)
[2019-06-18] MEDS: TUMS PO SCH ×2 (09:09→18:23)
[2019-06-18] MEDS: CENTRUM SILVER PO SCH (09:09)
[2019-06-18] MEDS: VITAMIN C PO SCH ×2 (09:09→20:54)
[2019-06-18] MEDS: TRESIBA FLEXTOUCH U-100 SUBQ SCH (20:55)
[2019-06-19] MEDS: HEPARIN SUBQ SCH ×2 (06:20→17:08)
[2019-06-19] MEDS: PRILOSEC PO SCH (06:21)
[2019-06-19] MEDS: HUMALOG SUBQ SCH ×7 (06:21→20:31)
[2019-06-19 07:14] LABS: HEMATOCRIT 31.3 % (42.0-52.0); HEMOGLOBIN 9.1 g/dL (14.0-18.0); MCH 28.9 PG (27-31); MCHC 29.1 g/dL (33-37); MCV 99.4 FL (81-99); MPV 9.3 FL (7.4-10.4); RBC 3.15 XMIL (4.7-6.1); RDW 15.1 % (11.5-14.5); WBC 12.4 X1000 (4.8-10.8)
[2019-06-19 07:37] LABS: ALBUMIN 2.4 g/dL (3.5-5.0); CREATININE 3.5 mg/dL (0.7-1.2); POTASSIUM 3.4 mmol/L (3.5-5.1)
[2019-06-19 08:02] LABS: CALCIUM 6.6 mg/dL (8.8-10.2)
[2019-06-19] MEDS: MERREM 1 GM in NS 50 ML IV SCH ×2 (09:25→20:27)
[2019-06-19] MEDS ORDERED: DIPRIVAN 1% ONE (11:59)
[2019-06-19] MEDS ORDERED: SUFENTA ONE (12:01)
[2019-06-19] MEDS: ASPIRIN EC PO SCH (17:02)
[2019-06-19] MEDS: ZINC SULFATE PO SCH ×2 (17:06→20:29)
[2019-06-19] MEDS: POTASSIUM CHLORIDE 10 MEQ/SWI 10 MEQ/100 ML IVPB IV SCH ×2 (17:07→22:05)
[2019-06-19] MEDS: VITAMIN D PO SCH (17:07)
[2019-06-19] MEDS: VITAMIN C PO SCH ×2 (17:09→20:30)
[2019-06-19] MEDS: VITAMIN B-12 PO SCH (17:10)
[2019-06-19] MEDS: CULTURELLE PO SCH ×2 (17:10→20:30)
[2019-06-19] MEDS: TUMS PO SCH ×2 (17:10→17:11)
[2019-06-19] MEDS: CENTRUM SILVER PO SCH (17:11)
[2019-06-19] MEDS: TRESIBA FLEXTOUCH U-100 SUBQ SCH (20:30)
[2019-06-19] MEDS: TYLENOL PO PRN (22:04)
[2019-06-20] MEDS: HEPARIN SUBQ SCH ×2 (05:15→17:24)
[2019-06-20] MEDS: HUMALOG SUBQ SCH ×7 (06:07→20:34)
[2019-06-20] MEDS: PRILOSEC PO SCH (06:08)
[2019-06-20 07:32] LABS: BASO# 0.03 X1000 (0.0-0.2); BASO% 0.2 % (0.0-0.8); EOS# 0.08 X1000 (0.0-0.7); EOS% 0.6 % (0.0-10.0); HEMATOCRIT 27.3 % (42.0-52.0); HEMOGLOBIN 7.8 g/dL (14.0-18.0); IMM GRAN# 0.15 X1000 (0.0-0.04); IMM GRAN% 1.2 % (0.0-0.5); LYMPH# 3.01 X1000 (1.2-3.4); LYMPH% 23.3 % (20.5-51.1); MCH 28.8 PG (27-31); MCHC 28.6 g/dL (33-37); MCV 100.7 FL (81-99); MONO# 1.07 X1000 (0.11-0.59); MONO% 8.3 % (1.7-9.3); MPV 9.3 FL (7.4-10.4); NEUT# 8.58 X1000 (1.4-6.5); NEUT% 66.4 % (42.2-75.2); PLT 379 X1000 (130-400); RBC 2.71 XMIL (4.7-6.1); RDW 14.9 % (11.5-14.5); WBC 12.92 X1000 (4.8-10.8)
[2019-06-20 07:58] LABS: ALBUMIN 2.5 g/dL (3.5-5.0); CREATININE 3.6 mg/dL (0.7-1.2); PHOSPHORUS 6.4 mg/dL (2.7-4.5); POTASSIUM 3.8 mmol/L (3.5-5.1)
[2019-06-20 08:08] LABS: CALCIUM 6.9 mg/dL (8.8-10.2)
[2019-06-20] MEDS: VITAMIN B-12 PO SCH (09:26)
[2019-06-20] MEDS: VITAMIN C PO SCH ×2 (09:26→20:34)
[2019-06-20] MEDS: TUMS PO SCH ×3 (09:26→17:24)
[2019-06-20] MEDS: ZINC SULFATE PO SCH ×2 (09:27→20:34)
[2019-06-20] MEDS: CULTURELLE PO SCH ×2 (09:27→20:34)
[2019-06-20] MEDS: VITAMIN D PO SCH (09:27)
[2019-06-20] MEDS: ASPIRIN EC PO SCH (09:27)
[2019-06-20] MEDS: CENTRUM SILVER PO SCH (09:27)
[2019-06-20] MEDS: MERREM 1 GM in NS 50 ML IV SCH ×2 (09:28→20:34)
[2019-06-20] MEDS ORDERED: INSULIN PEN NEEDLES ONE (12:19)
[2019-06-20] MEDS: TRESIBA FLEXTOUCH U-100 SUBQ SCH (20:35)
[2019-06-21] MEDS: HEPARIN SUBQ SCH ×2 (04:50→17:50)
[2019-06-21] MEDS: HUMALOG SUBQ SCH ×6 (06:20→17:49)
[2019-06-21] MEDS: PRILOSEC PO SCH (06:24)
[2019-06-21 07:45] LABS: HEMATOCRIT 25.5 % (42.0-52.0); HEMOGLOBIN 7.4 g/dL (14.0-18.0); MCH 29.1 PG (27-31); MCV 100.4 FL (81-99); MPV 9.2 FL (7.4-10.4); RBC 2.54 XMIL (4.7-6.1); RDW 14.8 % (11.5-14.5); WBC 10.96 X1000 (4.8-10.8)
[2019-06-21 08:11] LABS: ALBUMIN 2.5 g/dL (3.5-5.0); CREATININE 3.6 mg/dL (0.7-1.2); PHOSPHORUS 6.7 mg/dL (2.7-4.5); POTASSIUM 4.2 mmol/L (3.5-5.1)
[2019-06-21] MEDS: VITAMIN D PO SCH (09:08)
[2019-06-21] MEDS: MERREM 1 GM in NS 50 ML IV SCH ×2 (09:08→21:25)
[2019-06-21] MEDS: CENTRUM SILVER PO SCH (09:08)
[2019-06-21] MEDS: ASPIRIN EC PO SCH (09:08)
[2019-06-21] MEDS: ZINC SULFATE PO SCH ×2 (09:09→21:24)
[2019-06-21] MEDS: TUMS PO SCH ×3 (09:09→17:50)
[2019-06-21] MEDS: VITAMIN B-12 PO SCH (09:09)
[2019-06-21] MEDS: VITAMIN C PO SCH ×2 (09:09→21:24)
[2019-06-21] MEDS: CULTURELLE PO SCH ×2 (09:09→21:24)
[2019-06-21] MEDS ORDERED: CALMOSEPTINE OINTMENT TOP PRN (18:26)
[2019-06-21 20:07] LABS: CALCIUM 6.1 mg/dL (8.8-10.2)
[2019-06-21] MEDS ORDERED: CALCIUM GLUCONATE 1 GM in NS 50 ML IV ONE (20:08)
[2019-06-21] MEDS: TRESIBA FLEXTOUCH U-100 SUBQ SCH (21:24)
[2019-06-22] MEDS: HUMALOG SUBQ SCH ×8 (00:49→22:10)
[2019-06-22] MEDS: PRILOSEC PO SCH (06:19)
[2019-06-22] MEDS: HEPARIN SUBQ SCH ×2 (06:20→17:27)
[2019-06-22 07:46] LABS: RETIC% 1.98 % (0.8-2.1); RETIC-HE 37.1 PG (28.2-36.6)
[2019-06-22 07:50] LABS: BASO# 0.06 X1000 (0.0-0.2); BASO% 0.6 % (0.0-0.8); EOS# 0.14 X1000 (0.0-0.7); EOS% 1.5 % (0.0-10.0); HEMATOCRIT 26.9 % (42.0-52.0); HEMOGLOBIN 7.8 g/dL (14.0-18.0); IMM GRAN# 0.18 X1000 (0.0-0.04); IMM GRAN% 1.9 % (0.0-0.5); LYMPH# 2.84 X1000 (1.2-3.4); LYMPH% 29.5 % (20.5-51.1); MCH 29.1 PG (27-31); MCV 100.4 FL (81-99); MONO# 0.95 X1000 (0.11-0.59); MONO% 9.9 % (1.7-9.3); MPV 8.7 FL (7.4-10.4); NEUT# 5.47 X1000 (1.4-6.5); NEUT% 56.6 % (42.2-75.2); PLT 375 X1000 (130-400); RBC 2.68 XMIL (4.7-6.1); RDW 14.7 % (11.5-14.5); WBC 9.64 X1000 (4.8-10.8)
[2019-06-22 08:25] LABS: ALBUMIN 2.5 g/dL (3.5-5.0); CALCIUM 7.2 mg/dL (8.8-10.2); CREATININE 3.3 mg/dL (0.7-1.2); PHOSPHORUS 6.2 mg/dL (2.7-4.5); POTASSIUM 3.5 mmol/L (3.5-5.1)
[2019-06-22 09:11] LABS: FERRITIN 2457 ng/mL (30-400)
[2019-06-22] MEDS: ZINC SULFATE PO SCH ×2 (09:56→22:11)
[2019-06-22] MEDS: VITAMIN B-12 PO SCH (09:56)
[2019-06-22] MEDS: VITAMIN D PO SCH (09:57)
[2019-06-22] MEDS: VITAMIN C PO SCH ×2 (09:57→22:11)
[2019-06-22] MEDS: CENTRUM SILVER PO SCH (09:57)
[2019-06-22] MEDS: CULTURELLE PO SCH ×2 (09:57→22:11)
[2019-06-22] MEDS: TUMS PO SCH ×3 (09:57→17:26)
[2019-06-22] MEDS: MERREM 1 GM in NS 50 ML IV SCH ×2 (09:57→22:11)
[2019-06-22] MEDS ORDERED: INSULIN PEN NEEDLES ONE (10:38)
[2019-06-22] MEDS: ASPIRIN EC PO SCH (12:29)
[2019-06-22] MEDS: TRESIBA FLEXTOUCH U-100 SUBQ SCH (22:11)
[2019-06-23] MEDS: HUMALOG SUBQ SCH ×7 (06:05→22:30)
[2019-06-23] MEDS: HEPARIN SUBQ SCH ×2 (06:05→16:33)
[2019-06-23] MEDS: PRILOSEC PO SCH (06:06)
[2019-06-23 07:44] LABS: HEMOGLOBIN 7.4 g/dL (14.0-18.0); MCHC 29.6 g/dL (33-37); MCV 101.2 FL (81-99); MPV 9.1 FL (7.4-10.4); RBC 2.47 XMIL (4.7-6.1); RDW 14.9 % (11.5-14.5); WBC 11.94 X1000 (4.8-10.8)
[2019-06-23 08:12] LABS: ALBUMIN 2.5 g/dL (3.5-5.0); CALCIUM 7.1 mg/dL (8.8-10.2); CREATININE 3.3 mg/dL (0.7-1.2); PHOSPHORUS 6.3 mg/dL (2.7-4.5); POTASSIUM 4.3 mmol/L (3.5-5.1)
[2019-06-23] MEDS: MERREM 1 GM in NS 50 ML IV SCH ×2 (09:21→22:31)
[2019-06-23] MEDS: TUMS PO SCH ×3 (09:21→16:33)
[2019-06-23] MEDS: ASPIRIN EC PO SCH (09:21)
[2019-06-23] MEDS: CENTRUM SILVER PO SCH (09:22)
[2019-06-23] MEDS: VITAMIN C PO SCH ×2 (09:22→22:30)
[2019-06-23] MEDS: VITAMIN B-12 PO SCH (09:22)
[2019-06-23] MEDS: VITAMIN D PO SCH (09:22)
[2019-06-23] MEDS: CULTURELLE PO SCH ×2 (09:22→22:29)
[2019-06-23] MEDS: ZINC SULFATE PO SCH ×2 (09:22→22:29)
[2019-06-23] MEDS: TRESIBA FLEXTOUCH U-100 SUBQ SCH (22:30)
[2019-06-24] MEDS: HUMALOG SUBQ SCH ×7 (06:04→22:23)
[2019-06-24] MEDS: PRILOSEC PO SCH (06:38)
[2019-06-24] MEDS: HEPARIN SUBQ SCH ×2 (06:38→16:38)
[2019-06-24 07:38] LABS: BASO# 0.05 X1000 (0.0-0.2); BASO% 0.4 % (0.0-0.8); EOS# 0.21 X1000 (0.0-0.7); EOS% 1.8 % (0.0-10.0); HEMATOCRIT 23.3 % (42.0-52.0); HEMOGLOBIN 6.9 g/dL (14.0-18.0); LYMPH# 3.67 X1000 (1.2-3.4); LYMPH% 32.3 % (20.5-51.1); MCH 30.1 PG (27-31); MCHC 29.6 g/dL (33-37); MCV 101.7 FL (81-99); MONO# 1.18 X1000 (0.11-0.59); MONO% 10.4 % (1.7-9.3); MPV 9.1 FL (7.4-10.4); NEUT# 6.26 X1000 (1.4-6.5); NEUT% 55.1 % (42.2-75.2); PLT 380 X1000 (130-400); RBC 2.29 XMIL (4.7-6.1); WBC 11.37 X1000 (4.8-10.8)
[2019-06-24 08:10] LABS: ALBUMIN 2.5 g/dL (3.5-5.0); CREATININE 3.3 mg/dL (0.7-1.2); PHOSPHORUS 5.4 mg/dL (2.7-4.5); POTASSIUM 4.7 mmol/L (3.5-5.1)
[2019-06-24 08:28] LABS: CALCIUM 6.9 mg/dL (8.8-10.2)
[2019-06-24] MEDS: VITAMIN B-12 PO SCH (10:10)
[2019-06-24] MEDS: VITAMIN D PO SCH (10:10)
[2019-06-24] MEDS: VITAMIN C PO SCH ×2 (10:11→21:04)
[2019-06-24] MEDS: ZINC SULFATE PO SCH ×2 (10:11→21:05)
[2019-06-24] MEDS: TUMS PO SCH ×3 (10:11→16:38)
[2019-06-24] MEDS: ASPIRIN EC PO SCH (10:11)
[2019-06-24] MEDS: CULTURELLE PO SCH ×2 (10:11→21:04)
[2019-06-24] MEDS: CENTRUM SILVER PO SCH (10:11)
[2019-06-24] MEDS ORDERED: CALCIUM GLUCONATE 2 GM in NS 100 ML IV ONE (13:43)
[2019-06-24] MEDS ORDERED: NS 500 ML ONE (18:21)
[2019-06-24] MEDS: TRESIBA FLEXTOUCH U-100 SUBQ SCH (21:05)
[2019-06-25] MEDS: PRILOSEC PO SCH (06:21)
[2019-06-25] MEDS: HEPARIN SUBQ SCH ×2 (06:21→17:47)
[2019-06-25] MEDS: HUMALOG SUBQ SCH ×6 (06:22→17:49)
[2019-06-25 08:01] LABS: ALBUMIN 2.5 g/dL (3.5-5.0); CALCIUM 7.6 mg/dL (8.8-10.2); CREATININE 3.1 mg/dL (0.7-1.2); PHOSPHORUS 5.6 mg/dL (2.7-4.5); POTASSIUM 4.9 mmol/L (3.5-5.1)
[2019-06-25] MEDS: ZINC SULFATE PO SCH (08:56)
[2019-06-25] MEDS: ASPIRIN EC PO SCH (08:56)
[2019-06-25] MEDS: CULTURELLE PO SCH (08:56)
[2019-06-25] MEDS: VITAMIN B-12 PO SCH (08:56)
[2019-06-25] MEDS: VITAMIN D PO SCH (08:56)
[2019-06-25] MEDS: VITAMIN C PO SCH (08:56)
[2019-06-25] MEDS: TUMS PO SCH ×2 (08:56→13:07)
[2019-06-25] MEDS: CENTRUM SILVER PO SCH (08:56)
[2019-06-25 12:31] VITALS: BP 122/50
[2019-06-25 12:49] LABS: MCH 29.1 PG (27-31); MCV 100.3 FL (81-99); MPV 9.9 FL (7.4-10.4); RBC 3.09 XMIL (4.7-6.1); RDW 15.7 % (11.5-14.5); WBC 11.01 X1000 (4.8-10.8)
== END 2019-06-25 18:00 ==
LOC: SUPCPDRO → ED 11:02 → 3N 16:35 → SUATTDRO 16:35
PROVIDERS: ATTEND Internal Medicine